=== PATIENT | female | born 1975 | race Caucasian/White ===

== ENCOUNTER 2017-09-04 00:56 | Inpatient (IN) ==
--- NOTE | 2017-09-04 07:20 | Electrocardiograph Report ---
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
[2017-09-04] MEDS: *HR* Metoprolol 5 MG/5 ML VIAL IVP PRN (07:51)
[2017-09-04] MEDS ORDERED: Naloxone 0.4 MG/ML INJ IVP PRN (08:30)
[2017-09-04] MEDS ORDERED: D5% in Water 1,000 ML IVC PRN (08:33)
[2017-09-04] MEDS ORDERED: *HR* Dextrose 50 % in Water (Syg) 50 ML SYRINGE IVP PRN (08:33)
[2017-09-04] MEDS ORDERED: Dextrose Gel 15 GM/37.5 ML TUBE PO PRN ×2 (08:33)
--- NOTE | 2017-09-04 08:43 | Internal Med History&Physical ---
Date of Encounter: 09/04/17 Time of Encounter: 05:00 Internal Medicine - H&P: HPI Chief complaint: Chest pain Admitted From: Home Plans for Post Hospital Care: Home History of present illness: Ms. Larkin is a 42 year old female Patient presents as a transfer from [facility]. 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 The pain was focused around her left upper chest, felt like pressure and was associated with shortness of breath and nausea. She had never had pain like this before. She came to the emergency room and her initial troponins were negative. Of note , her blood tests were described as being very thick in appearance, almost like a milkshake and had to be processed in a separate facility. She also had elevated blood sugars and blood pressure of 190/100. Her hypertension improved to 143/73 at time of transfer, and her EKG showed no acute changes. Chest CT was also negative. She elected to be transferred to [place] because she does not have a vehicle and has family in the area. Of note patient also has a boil in her groin that has been present for a few days. Has been having drainage including blood and pus. Past Med Surg Social Fam HX - Past Medical History Medical history: asthma, diabetes, hypertension Additional medical history: htn. hypothyroid. ear lesion. anxiety as acute reaction to exceptional stress. DM. Tachycardia - Past Surgical History Additional surgical history: c section. tubal ligation. hysterectomy. appendectomy. parathyroidectomy - Social History Smoking Status: Never smoker Alcohol use: none Drug use: none Internal Medicine - H&P: Meds Albuterol Sulfate [Albuterol Inhaler] 2 puff IH Q4-6H PRN 09/04/17 [History] Alogliptin Benzoate [Alogliptin] 25 mg PO DAILY 09/04/17 [History] Atorvastatin [Lipitor] 40 mg PO HS 09/04/17 [History] Buspirone HCl [Buspar] 10 mg PO BID 09/04/17 [History] Dicyclomine [Bentyl] 20 mg PO QID PRN 09/04/17 [History] Diltiazem HCl [Diltiazem 24Hr ER] 300 mg PO DAILY 09/04/17 [History] EPINEPHrine [Epipen] 0.3 mg IM ONCE PRN 09/04/17 [History] Ergocalciferol (VITAMIN D2) [Vitamin D2] 50,000 unit PO TH 09/04/17 [History] Fenofibrate,Micronized [Antara] 200 mg PO HS 09/04/17 [History] Gabapentin [Neurontin] 100 mg PO TID 09/04/17 [History] Glimepiride [Amaryl] 2 mg PO DAILY 09/04/17 [History] Insulin Degludec [Tresiba Flextouch U-100] 50 unit SQ DAILY 09/04/17 [History] Insulin LISPRO [Humalog Kwikpen U-100] 10 unit SQ TIDWM 09/04/17 [History] Levothyroxine Sodium 25 mcg PO DAILY 09/04/17 [History] Metformin HCl [Metformin HCl] 500 mg PO BID 09/04/17 [History] Metoprolol Succinate 100 mg PO DAILY 09/04/17 [History] Mirtazapine [Remeron] 45 mg PO HS 09/04/17 [History] Promethazine [Phenergan] 25 mg PO Q4H PRN 09/04/17 [History] Ranitidine HCl [Acid Mechanical Detailer] 150 mg PO HS PRN 09/04/17 [History] Tizanidine HCl [Tizanidine HCl] 4 mg PO TID 09/04/17 [History] Topiramate [Topamax] 25 mg PO Q12H 09/04/17 [History] Venlafaxine HCl [Venlafaxine HCl ER] 150 mg PO QAM 09/04/17 [History] 3 Allergy/AdvReac Type Severity Reaction Status Date / Time azithromycin Allergy Difficulty Verified 09/04/17 07:50 [From Zithromax Z-Jareth] Breathing NSAIDS (Non-Steroidal Allergy Difficulty Verified 09/04/17 07:50 Anti-Inflamma Breathing All Systems PM: A 10-system review of systems was performed and is negative for pertinent findings except as documented above in the HPI. - Constitutional Vitals: Temp Pulse Resp BP Pulse Ox 98.2 F 107 17 176/119 99 09/04/17 07:33 09/04/17 07:33 09/04/17 07:33 09/04/17 07:33 09/04/17 07:33 General appearance: Present: mild distress, A&O X 3, pleasant - Head Head exam: Present: normal inspection - Eye Eye exam: Present: EOMI, normal appearance - Respiratory Respiratory exam: Present: CTAB. Absent: chest wall tenderness, respiratory distress, wheezes - Cardiovascular Cardiovascular exam: Present: RRR. Absent: diastolic murmur, systolic murmur - GI/Abdominal GI/Abdominal exam: Present: normal bowel sounds, soft. Absent: tenderness - Extremities Exam Extremities exam: Present: warm, radial pulses palpable and symmetrical. Absent : calf tenderness, tenderness - Neurological Exam Neurological exam: Present: strengths equal and symetr throughout. 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 Denies heavy lifting, never had before. Trops negative thus far, no EKG changes. Patient's pain has improved since her transfer, but still present. Continue to monitor troponins. 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 Qualifiers: Qualified Code(s): R07.9 - Chest pain, unspecified (2) Diabetes Current Visit: Yes Status: Acute Assessment and plan: Poorly controlled diabetic, has not had good control of her sugars for some time Start on subcutaneous insulin with sliding scale Diabetes education today Check A1c Monitor sugars with meals and at night. 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 Discharge present. Start doxycycline Wound cultures obtained, follow up results. (4) Hypertension Current Visit: Yes Status: Acute Assessment and plan: Improved from previous ER, takes metoprolol at home. Continue to monitor. Qualifiers: Qualified Code(s): I10 - Essential (primary) hypertension (5) Hyperlipidemia Current Visit: Yes Status: Acute Assessment and plan: Takes fenofibrate and atorvastatin. Had blood samples that were described as ' like a milkshake' but [facility]. Check lipid panel. Continue home meds. Qualifiers: Qualified Code(s): E78.2 - Mixed hyperlipidemia (6) High triglycerides Current Visit: Yes Status: Acute Assessment and plan: Patient states that she does have history of high triglycerides. Check lipid panel today. - Time Spent With Patient Total time spent is greater than 50% in coordination of care (as documented) at patient's floor/unit and/or counseling patient: Greater than 35 minutes
[2017-09-04] MEDS: *HR* HYDROcodone/Acet 5/325 mg TABLET PO PRN ×3 (09:35→23:35)
[2017-09-04] MEDS: Insulin LISPRO 300 UNITS/3 ML VIAL SQ SCH ×2 (09:35→12:06)
[2017-09-04] MEDS: Doxycycline 100 MG CAPSULE PO SCH ×2 (09:35→20:32)
[2017-09-04 09:58] LABS: Basophils # 0.1 K/mcL (0.0-0.2); Basophils % 0.6 %; Eosinophils # 0.1 K/mcL (0.0-0.6); Eosinophils % 0.8 %; Hematocrit 38.9 % (35.3-44.9); Hemoglobin 13.9 g/dL (11.5-15.4); Immature Granulocytes % 0.3 % (0-4); Lymphocytes # 2.4 K/mcL (0.6-4.6); Lymphocytes % 24.8 %; Mean Corpuscular HGB Conc 35.7 g/dL (31.6-35.5); Mean Corpuscular Hemoglobin 32.8 pg (28.0-33.3); Mean Corpuscular Volume 91.7 fL (83.0-100.0); Mean Platelet Volume 10.3 fL (9.4-12.4); Monocytes # 0.6 K/mcL (0.0-1.3); Neutrophils # 6.6 K/mcL (1.6-8.9); Platelet Count 306 K/mcL (140-400); Red Blood Count 4.24 M/mcL (3.82-4.97); Segmented Neutrophils % 67.5 %
[2017-09-04 10:56] LABS: Chol/HDL Ratio 37.6 (0-4.9); Cholesterol 941 mg/dL (< 200); HDL Cholesterol 25 mg/dL (40-59); Triglycerides > 5000 mg/dL (< 150)
[2017-09-04 11:20] LABS: Estimated Average Glucose 413 mg/dl
[2017-09-04] MEDS ORDERED: Insulin LISPRO 300 UNITS/3 ML VIAL SQ SCH ×4 (11:30→21:00)
[2017-09-04] MEDS: Nitroglycerin 0.4 MG TAB.SUBL SL PRN ×2 (12:08→20:35)
[2017-09-04 12:17] LABS: BUN/Creatinine Ratio 10 (6-26); Blood Urea Nitrogen 7 mg/dL (6-20); Calcium 9.2 mg/dL (8.6-10.3); Carbon Dioxide 16 mEq/L (23-29); Chloride 94 mEq/L (98-107); Glucose 451 mg/dL (70-105); Osmolality,Calculated 278 (280-300); Potassium 3.7 mEq/L (3.5-5.1); Sodium 125 mEq/L (136-145); eGFR For African Americans > 60 (> 60); eGFR For Non-African Americans > 60 (> 60)
[2017-09-04] MEDS ORDERED: Famotidine 20 MG TABLET PO PRN (13:01)
[2017-09-04] MEDS ORDERED: *HR* EPINEPHrine 0.3 MG/0.3 ML (PEN) IM PRN (13:01)
[2017-09-04 13:43] LABS: Lipase 80 Units/L (11-82)
--- NOTE | 2017-09-04 14:15 | Event Note ---
Date of Encounter: 09/04/17 Time of Encounter: 09:50 Patient continues to have chest pain in the left anterior chest wall region. Nonradiating. Labs show a severely elevated triglycerides, high blood sugars and A1c of 16%. Place patient on insulin per sliding scale and long-acting insulin. Patient is already on statin and fenofibrate. Unsure if she is complying with this medication regimen. No signs of pancreatitis at this time. Lipase is normal. Will monitor closely. If troponins are negative, consider stress test in morning.
[2017-09-04] MEDS: 0.9 % Sodium Chloride w KCl 20 MEQ/1,000 ML MLS IVC SCH (14:26)
[2017-09-04] MEDS: Gabapentin 100 MG CAPSULE PO SCH ×2 (14:26→20:32)
[2017-09-04] MEDS: tiZANidine 4 MG TABLET PO SCH ×2 (14:26→20:32)
[2017-09-04] MEDS ORDERED: D5% in Water 1,000 ML IVC SCH (15:45)
[2017-09-04] MEDS: Insulin Human Regular 100 UNIT in 0.9 % Sodium Chloride 100 ML IVC SCH (16:22)
--- NOTE | 2017-09-04 16:56 | Event Note ---
Date of Encounter: 09/04/17 Time of Encounter: 16:55 Patient has severe hypertriglyceridemia with triglycerides greater than 5000. Lipase is normal. Since we are unable to do plasmapheresis here, we will place patient on insulin drip. If her blood sugars trend down, we will switch her fluids to D5 1/2 NS.
[2017-09-04] MEDS: *HR* Heparin 5,000 UNIT/ML VIAL SQ SCH (17:06)
[2017-09-04 18:47] LABS: Carbon Dioxide 16 mEq/L (23-29); Chloride 95 mEq/L (98-107); Potassium 3.2 mEq/L (3.5-5.1); Sodium 124 mEq/L (136-145)
[2017-09-04 18:48] LABS: BUN/Creatinine Ratio 15 (6-26); Blood Urea Nitrogen 10 mg/dL (6-20); Glucose 331 mg/dL (70-105); Osmolality,Calculated 270 (280-300); eGFR For African Americans > 60 (> 60); eGFR For Non-African Americans > 60 (> 60)
[2017-09-04] MEDS: Topiramate 25 MG TABLET PO SCH (20:33)
[2017-09-04] MEDS: Mirtazapine 15 MG TABLET PO SCH (20:33)
[2017-09-04] MEDS ORDERED: Fenofibrate 54 MG TABLET PO SCH (21:00)
[2017-09-04] MEDS ORDERED: Insulin DETEMIR 100 UNIT/ML X5UNITS SQ SCH (21:00)
[2017-09-04] MEDS: Potassium Chloride 40 MEQ in D5% in 0.45% NACL 1,000 ML IVC SCH (22:36)
[2017-09-04 23:11] LABS: Potassium 2.9 mEq/L (3.5-5.1); Sodium 127 mEq/L (136-145)
[2017-09-04 23:12] LABS: Carbon Dioxide 17 mEq/L (23-29); Chloride 98 mEq/L (98-107)
[2017-09-04 23:13] LABS: BUN/Creatinine Ratio 20 (6-26); Blood Urea Nitrogen 11 mg/dL (6-20); Glucose 172 mg/dL (70-105); Osmolality,Calculated 267 (280-300); eGFR For African Americans > 60 (> 60); eGFR For Non-African Americans > 60 (> 60)
[2017-09-04 23:14] LABS: Calcium 8.8 mg/dL (8.6-10.3)
[2017-09-05] MEDS: Insulin Human Regular 100 UNIT in 0.9 % Sodium Chloride 100 ML IVC SCH ×3 (00:29→15:28)
[2017-09-05] MEDS: *HR* Metoprolol 5 MG/5 ML VIAL IVP PRN (04:29)
[2017-09-05 05:07] LABS: Basophils # 0.1 K/mcL (0.0-0.2); Basophils % 0.7 %; Eosinophils # 0.2 K/mcL (0.0-0.6); Hematocrit 39.1 % (35.3-44.9); Hemoglobin 13.9 g/dL (11.5-15.4); Immature Granulocytes % 0.6 % (0-4); Lymphocytes # 2.6 K/mcL (0.6-4.6); Mean Corpuscular HGB Conc 35.5 g/dL (31.6-35.5); Mean Corpuscular Hemoglobin 32.9 pg (28.0-33.3); Mean Corpuscular Volume 92.7 fL (83.0-100.0); Mean Platelet Volume 10.4 fL (9.4-12.4); Monocytes # 0.5 K/mcL (0.0-1.3); Monocytes % 5.6 %; Neutrophils # 4.8 K/mcL (1.6-8.9); Platelet Count 292 K/mcL (140-400); Red Blood Count 4.22 M/mcL (3.82-4.97); Red Cell Distribution Width 13.9 % (11.5-14.5); Segmented Neutrophils % 59.1 %
[2017-09-05] MEDS: *HR* HYDROcodone/Acet 5/325 mg TABLET PO PRN ×4 (05:54→23:55)
[2017-09-05] MEDS: Levothyroxine 25 MCG TABLET PO SCH (05:54)
[2017-09-05] MEDS: *HR* Heparin 5,000 UNIT/ML VIAL SQ SCH ×2 (05:55→17:57)
[2017-09-05] MEDS ORDERED: Regadenoson 0.4 MG/5 ML SYRINGE IVP ONE (06:28)
[2017-09-05] MEDS: tiZANidine 4 MG TABLET PO SCH ×4 (06:33→23:55)
[2017-09-05 07:10] LABS: BUN/Creatinine Ratio 21 (6-26); Blood Urea Nitrogen 10 mg/dL (6-20); Carbon Dioxide 14 mEq/L (23-29); Chloride 101 mEq/L (98-107); Glucose 208 mg/dL (70-105); Osmolality,Calculated 271 (280-300); Potassium 3.2 mEq/L (3.5-5.1); Sodium 128 mEq/L (136-145); Triglycerides > 5000 mg/dL (< 150); eGFR For African Americans > 60 (> 60); eGFR For Non-African Americans > 60 (> 60)
[2017-09-05] MEDS: Potassium Chloride 40 MEQ in D5% in 0.45% NACL 1,000 ML IVC SCH (09:44)
[2017-09-05] MEDS: Diltiazem CD (24hr) 300 MG CAPSULE PO SCH (09:51)
[2017-09-05] MEDS: Venlafaxine XR (24 HR) 150 MG CAP.ER.24H PO SCH (09:51)
[2017-09-05] MEDS: Doxycycline 100 MG CAPSULE PO SCH ×2 (09:51→20:16)
[2017-09-05] MEDS: Cholecalciferol (D-3) 1,000 UNIT TABLET PO SCH (09:51)
[2017-09-05] MEDS: Topiramate 25 MG TABLET PO SCH ×2 (09:51→20:16)
[2017-09-05] MEDS: Metoprolol XL (24 HR) Succ 50 MG TAB.ER.24H PO SCH (09:51)
[2017-09-05] MEDS: Gabapentin 100 MG CAPSULE PO SCH ×3 (09:51→20:17)
[2017-09-05] MEDS: 0.9 % Sodium Chloride w KCl 20 MEQ/1,000 ML MLS IVC SCH (12:15)
--- NOTE | 2017-09-05 15:40 | Internal Med Progress Note ---
Date of Encounter: 09/05/17 Time of Encounter: 09:50 - Assessment and plan (1) Chest pain Current Visit: Yes Status: Acute Assessment and plan: Likely musculoskeletal. Chest pain is improving. Stress test was negative for any ischemia. Qualifiers: Chest pain type: precordial pain Qualified Code(s): R07.2 - Precordial pain (2) Diabetes Current Visit: Yes Status: Chronic Assessment and plan: Uncontrolled. Patient received about 200 units of insulin overnight and her blood sugars have improved. Discussed with her shipping room helper. She has not followed up with them for at least 6 months now. A1c done in July was around 12 %. Currently at 16%. Discussed further plan of care and recommended U500. We will start 100 units of U500 insulin starting tonight. Monitor blood sugars closely. If patient responds well to this regimen, plan on discharge tomorrow at this dose. 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 On doxycycline. Will complete a one-week course. (4) High triglycerides Current Visit: Yes Status: Acute Assessment and plan: Triglycerides remain greater than 500. Discussed with her shipping room helper. Her previous labs in July showed triglycerides levels of 500. Placed on IV insulin to help improve triglyceride levels. We will discontinue later this evening and transition to use 500. Increased fenofibrate and statin dose. (5) Hyperlipidemia Current Visit: Yes Status: Chronic Assessment and plan: Management as above Qualifiers: Hyperlipidemia type: mixed hyperlipidemia Qualified Code(s): E78.2 - Mixed hyperlipidemia (6) Hypertension Current Visit: Yes Status: Chronic Assessment and plan: Continue Cardizem and metoprolol. Blood pressure is controlled at this time. Qualifiers: Hypertension type: essential hypertension Qualified Code(s): I10 - Essential (primary) hypertension - Time Spent With Patient Total time spent is greater than 50% in coordination of care (as documented) at patient's floor/unit and/or counseling patient: - Subjective Interval history: Patient is lying in bed. She does continue to have intermittent chest pain. Underwent cardiac stress test this morning. No complications. On IV insulin drip currently. No fever or chills reported overnight. - Constitutional Vitals: Temp Pulse Resp BP Pulse Ox 98.9 F 101 18 129/77 96 09/05/17 11:21 09/05/17 11:21 09/05/17 11:21 09/05/17 11:21 09/05/17 11:21 General appearance: Present: mild distress, A&O X 3, pleasant, answers questions appropriately - Neck Neck exam general surgery: Present: supple, trachea midline. Absent: lymphadenopathy - Respiratory Respiratory exam: Present: CTAB. Absent: accessory muscle use, rales, rhonchi, wheezes - Cardiovascular Cardiovascular exam: Present: RRR, +S1, +S2. Absent: diastolic murmur, gallop, rubs, systolic murmur - GI/Abdominal GI/Abdominal exam: Present: normal bowel sounds, soft, no peritoneal signs. Absent: distended, tenderness - Extremities Exam Extremities exam: Present: warm, radial pulses palpable and symmetrical. Absent : calf tenderness, cyanotic, pedal edema - Neurological Exam Neurological exam: Present: alert, oriented X3, no focal deficits. Absent: facial droop, speech deficit - Skin Skin exam: Present: dry, intact Internal Medicine: Result - Labs CBC & Chem 7: 09/05/17 04:40 09/05/17 04:40 Labs: Short CBC 09/05/17 Range/Units 04:40 WBC 8.1 (4.3-11.1) K/mcL Hgb 13.9 (11.5-15.4) g/dL Hct 39.1 (35.3-44.9) % Plt Count 292 (140-400) K/mcL Neutrophils # 4.8 (1.6-8.9) K/mcL BMP 09/04/17 09/04/17 09/05/17 17:22 21:52 04:40 Sodium 124 L 127 L 128 L Potassium 3.2 L 2.9 L 3.2 L Chloride 95 L 98 101 Carbon Dioxide 16 L 17 L 14 L BUN 10 11 10 Creatinine 0.65 0.54 L 0.47 L Glucose 331 H 172 H 208 H Calcium 9.0 8.8 9.0 Consult Discharge Plan - Plan Referrals: Alexander Johns DO [Primary Care Provider] - 09/11/17 1:30 pm (Please follow up as schedule..) Demetra Echols, GABRIELA [Advanced Practice Nurse] - 09/11/17 8:00 am (Please follow up as schedule...) Prescriptions: Insulin Regular U-500 [HumuLIN R U-500] 100 unit SQ BIDWM #1 vial Syringe Ndl,Insul U-500,0.5ML [Insulin Syringe] 1 each MC BID #60 disp.syrin
[2017-09-05] MEDS: *HR* Insulin Regular U-500 500 UNIT/ML SQ SCH (17:56)
[2017-09-05] MEDS: Mirtazapine 15 MG TABLET PO SCH (20:16)
[2017-09-05] MEDS ORDERED: Fenofibrate 54 MG TABLET PO SCH (21:00)
[2017-09-06] MEDS: *HR* HYDROcodone/Acet 5/325 mg TABLET PO PRN ×2 (06:14→12:37)
[2017-09-06] MEDS: tiZANidine 4 MG TABLET PO SCH (06:14)
[2017-09-06] MEDS: Levothyroxine 25 MCG TABLET PO SCH (06:14)
[2017-09-06] MEDS: *HR* Heparin 5,000 UNIT/ML VIAL SQ SCH (06:14)
[2017-09-06] MEDS ORDERED: D5% in Water 1,000 ML IVC PRN (08:46)
[2017-09-06] MEDS: Venlafaxine XR (24 HR) 150 MG CAP.ER.24H PO SCH (09:27)
[2017-09-06] MEDS: Diltiazem CD (24hr) 300 MG CAPSULE PO SCH (09:28)
[2017-09-06] MEDS: Metoprolol XL (24 HR) Succ 50 MG TAB.ER.24H PO SCH (09:28)
[2017-09-06] MEDS: Topiramate 25 MG TABLET PO SCH (09:28)
[2017-09-06] MEDS: Doxycycline 100 MG CAPSULE PO SCH (09:29)
[2017-09-06] MEDS: *HR* Insulin Regular U-500 500 UNIT/ML SQ SCH (09:29)
[2017-09-06] MEDS: Insulin LISPRO 300 UNITS/3 ML VIAL SQ SCH ×2 (09:29→12:37)
[2017-09-06] MEDS: Gabapentin 100 MG CAPSULE PO SCH (09:30)
[2017-09-06] MEDS: Cholecalciferol (D-3) 1,000 UNIT TABLET PO SCH (09:49)
[2017-09-06 10:40] VITALS: BP 142/93
--- NOTE | 2017-09-06 12:00 | Discharge Summary ---
- NOTES TO OUTPATIENT PROVIDER Notes to Outpatient Provider: Patient hospitalized with chest pain. Found to have uncontrolled diabetes and severe hypertriglyceridemia. She was placed on IV insulin and has now been transitioned to U500 insulin at 100 units twice daily. Discussed with her primary tea bag machine tender. Also increased her statin dose. He had a negative cardiac stress test. She is clinically stable to be discharged home. She has been provided with prescription and has already filled her U500 insulin here in the hospital. Patient also has hyponatremia and metabolic acidosis with low bicarbonate. Recommend outpatient follow-up with her PCP and possible consultation with nephrology as outpatient. 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: with alf use Diabetes mellitus complication status: with hyperglycemia Qualified Code(s): E11.65 - Type 2 diabetes mellitus with hyperglycemia; Z79.4 - health benefits specialist (current) use of insulin (3) Folliculitis Priority: Secondary Status: Acute (4) High triglycerides Priority: Secondary Status: Acute (5) Hyperlipidemia Priority: Secondary Status: Chronic Qualifiers: Hyperlipidemia type: mixed hyperlipidemia Qualified Code(s): E78.2 - Mixed hyperlipidemia (6) Hypertension Priority: Secondary Status: Chronic Qualifiers: Hypertension type: essential hypertension Qualified Code(s): I10 - Essential (primary) hypertension Hospital course: Ms. Larkin is a 42 year old female Patient with history of diabetes, possibly metabolic syndrome, hypertension, hyperlipidemia was hospitalized here with chest pain. She was found to have and uncontrolled diabetes and severe hypertriglyceridemia. Her triglycerides were greater than 5000. Blood sugars were greater than 400. A1c was greater than 16. She was placed on IV insulin for hypertriglyceridemia and has now been transitioned to U500 insulin at 100 units twice daily. She does have metabolic acidosis and hyponatremia but given her severe hypertriglyceridemia, unclear what her baseline is. She may benefit from referral to nephrology as outpatient for further management. Her corrected sodium currently is 128. I discussed her case with her primary tea bag machine tender. They are in agreement with starting patient on U500 insulin. We also increased her statin dose. He had a negative cardiac stress test. She is clinically stable to be discharged home. She has been provided with prescription and has already filled her U500 insulin here in the hospital. She needs to follow up as early as possible with her tea bag machine tender and primary care provider for further management. Discharge discussed with: patient, nurse, case management - Time Spent with Patient Total time spent providing and/or coordinating discharge services: Greater than 30 minutes (35 min) - Discharge Medications Prescriptions: Atorvastatin [Lipitor] 80 mg PO HS #60 tablet Doxycycline 100 mg PO BID #10 capsule Home Medications: Albuterol Sulfate [Albuterol Inhaler] 2 puff IH Q4-6H PRN 09/04/17 [History] Alogliptin Benzoate [Alogliptin] 25 mg PO DAILY 09/04/17 [History] Buspirone HCl [Buspar] 10 mg PO BID 09/04/17 [History] Dicyclomine [Bentyl] 20 mg PO QID PRN 09/04/17 [History] Diltiazem HCl [Diltiazem 24Hr ER] 300 mg PO DAILY 09/04/17 [History] EPINEPHrine [Epipen] 0.3 mg IM ONCE PRN 09/04/17 [History] Ergocalciferol (VITAMIN D2) [Vitamin D2] 50,000 unit PO TH 09/04/17 [History] Fenofibrate,Micronized [Antara] 200 mg PO HS 09/04/17 [History] Gabapentin [Neurontin] 100 mg PO TID 09/04/17 [History] Glimepiride [Amaryl] 2 mg PO DAILY 09/04/17 [History] Insulin LISPRO [Humalog Kwikpen U-100] 10 unit SQ TIDWM 09/04/17 [History] Levothyroxine Sodium 25 mcg PO DAILY 09/04/17 [History] Metformin HCl 500 mg PO BID 09/04/17 [History] Metoprolol Succinate 100 mg PO DAILY 09/04/17 [History] Mirtazapine [Remeron] 45 mg PO HS 09/04/17 [History] Promethazine [Phenergan] 25 mg PO Q4H PRN 09/04/17 [History] Ranitidine HCl [Acid Icu Registered Nurse] 150 mg PO HS PRN 09/04/17 [History] Tizanidine HCl 4 mg PO TID 09/04/17 [History] Topiramate [Topamax] 25 mg PO Q12H 09/04/17 [History] Venlafaxine HCl [Venlafaxine HCl ER] 150 mg PO QAM 09/04/17 [History] Insulin Regular U-500 [HumuLIN R U-500] 100 unit SQ BIDWM #1 vial 09/05/17 [Rx] Syringe Ndl,Insul U-500,0.5ML [Insulin Syringe] 1 each MC BID #60 disp.syrin [Rx] Atorvastatin [Lipitor] 80 mg PO HS #60 tablet 09/06/17 [Rx] Doxycycline 100 mg PO BID #10 capsule 09/06/17 [Rx] Allergies/Adverse Reactions: 3 Allergy/AdvReac Type Severity Reaction Status Date / Time azithromycin Allergy Difficulty Verified 09/04/17 07:50 [From Zithromax Z-Jareth] Breathing NSAIDS (Non-Steroidal Allergy Difficulty Verified 09/04/17 07:50 Anti-Inflamma Breathing Date of admission: 09/05/17 16:48 Primary care physician: Alexander Johns Consults: 09/04/17 08:33 Consult to Diabetes Education [CONS] Routine Comment: Reason for Consult: Poorly controlled diabetic, does not have good control of her blood sugars and has not for a long time. Discharging clinician: Elizabeth Howell Anticipated date of discharge: 09/06/17 - Constitutional Vitals: Temp Pulse Resp BP Pulse Ox 99.3 F 82 16 142/93 96 09/06/17 10:36 09/06/17 10:36 09/06/17 10:36 09/06/17 10:36 09/06/17 10:36 General appearance: Present: A&O X 3, pleasant, no acute distress, obese, answers questions appropriately - Neck Neck exam general surgery: Present: supple, trachea midline. Absent: lymphadenopathy - Respiratory Respiratory exam: Present: CTAB. Absent: accessory muscle use, rales, rhonchi, wheezes - Cardiovascular Cardiovascular exam: Present: RRR, +S1, +S2. Absent: diastolic murmur, gallop, rubs, systolic murmur - GI/Abdominal GI/Abdominal exam: Present: normal bowel sounds, soft, no peritoneal signs. Absent: distended, tenderness - Patient Status Disposition: Home, Self-Care Condition: Good Functional capacity at discharge: independent ambulation Overall status at discharge: patient is progressing back to baseline - Discharge Instructions Instructions: Chest Pain (DC), Diabetes Mellitus Type 2 in Adults (DC) Follow Up With: Alexander Johns DO [Primary Care Provider] - 09/11/17 1:30 pm (Please follow up as schedule..) Demetra Echols, GABRIELA [Advanced Practice Nurse] - 09/11/17 8:00 am (Please follow up as schedule...) Additional Instructions: Follow a low sodium, low fat, low cholesterol diet. Advance activity as tolerated. - Diet and Activity Activity: increase activity as tolerated Diet: diabetic diet, low fat, low cholesterol, low salt diet
[2017-09-06 13:49] LABS: BUN/Creatinine Ratio 17 (6-26); Blood Urea Nitrogen 13 mg/dL (6-20); Calcium 9.1 mg/dL (8.6-10.3); Carbon Dioxide 13 mEq/L (23-29); Chloride 98 mEq/L (98-107); Glucose 491 mg/dL (70-105); Osmolality,Calculated 276 (280-300); Potassium 4.7 mEq/L (3.5-5.1); Sodium 122 mEq/L (136-145); eGFR For African Americans > 60 (> 60); eGFR For Non-African Americans > 60 (> 60)
[2017-09-06 14:04] LABS: Triglycerides 4360 mg/dL (< 150)
--- NOTE | 2017-09-06 18:51 | Event Note ---
Date of Encounter: 09/06/17 Time of Encounter: 18:49 Reviewed labs. Patient's acidosis worsened. May have underlying RTA vs developing DKA. Called and spoke with patient and advised to return to ED if Blood sugars remain high. Patient agrees with plan.
[2017-09-06] MEDS ORDERED: Insulin LISPRO 300 UNITS/3 ML VIAL SQ SCH (21:00)
== END 2017-09-06 12:51 | disposition home or self-care (01) | DRG 313 ==
LOC: 2ANU → SUATTDRO 02:25
PROVIDERS: ADMIT Internal Medicine; ATTEND Internal Medicine

== ENCOUNTER 2018-05-03 05:02 | Inpatient (IN) ==
[2018-05-03] MEDS ORDERED: D5% in 0.45% NACL w KCl 20 MEQ/1,000 ML MLS IVC ONE (06:50)
[2018-05-03] MEDS ORDERED: Ondansetron 4 MG/2 ML VIAL IVP PRN (07:23)
[2018-05-03] MEDS ORDERED: Naloxone 0.4 MG/ML INJ IVP PRN (07:23)
[2018-05-03] MEDS ORDERED: Acetaminophen 325 MG TABLET PO PRN (07:23)
[2018-05-03] MEDS ORDERED: D5% in 0.45% NACL 1,000 ML IVC SCH (07:30)
[2018-05-03] MEDS ORDERED: *HR* FentaNYL (PF) 100 MCG/2 ML VIAL IVP ONE (07:50)
[2018-05-03 07:58] LABS: Basophils # 0.1 K/mcL (0.0-0.2); Basophils % 0.8 %; Eosinophils # 0.4 K/mcL (0.0-0.6); Eosinophils % 4.3 %; Hematocrit 36.4 % (35.3-44.9); Hemoglobin 12.2 g/dL (11.5-15.4); Immature Granulocytes % 0.3 % (0-4); Lymphocytes # 2.5 K/mcL (0.6-4.6); Lymphocytes % 28.5 %; Mean Corpuscular HGB Conc 33.5 g/dL (31.6-35.5); Mean Corpuscular Volume 89.7 fL (83.0-100.0); Mean Platelet Volume 10.6 fL (9.4-12.4); Monocytes # 0.6 K/mcL (0.0-1.3); Monocytes % 6.7 %; Neutrophils # 5.1 K/mcL (1.6-8.9); Platelet Count 197 K/mcL (140-400); Red Blood Count 4.06 M/mcL (3.82-4.97); Red Cell Distribution Width 12.8 % (11.5-14.5); Segmented Neutrophils % 59.4 %
[2018-05-03 08:02] LABS: VBG HCO3 25 mEq/L (21-27); VBG PCO2 41 mmHg (41-51); VBG PH 7.39 pH Units (7.32-7.42); VBG PO2 117 mmHg (25-50)
[2018-05-03 08:22] LABS: Alanine Aminotransferase 20 Units/L (7-52); Albumin 3.7 g/dL (3.5-5.7); Albumin/Globulin Ratio 1.6 (1.1-2.2); Alkaline Phosphatase 96 Units/L (34-104); Aspartate Amino Transferase 14 Units/L (13-39); BUN/Creatinine Ratio 13 (6-26); Bilirubin,Indirect 0.4 mg/dL (0.0-1.2); Bilirubin,Total 0.4 mg/dL (0.3-1.0); Blood Urea Nitrogen 12 mg/dL (6-20); Calcium 10.2 mg/dL (8.6-10.3); Carbon Dioxide 24 mEq/L (23-29); Chloride 98 mEq/L (98-107); Chol/HDL Ratio 11.2 (0-4.9); Cholesterol 313 mg/dL (< 200); Globulin 2.3 g/dL (2.4-3.5); Glucose 132 mg/dL (70-105); HDL Cholesterol 28 mg/dL (40-59); Lipase 25 Units/L (11-82); Magnesium 2.2 mg/dL (1.6-2.6); Osmolality,Calculated 274 (280-300); Phosphorous 2.7 mg/dL (2.7-4.5); Potassium 2.9 mEq/L (3.5-5.1); Sodium 131 mEq/L (136-145); Triglycerides 947 mg/dL (< 150); eGFR For Non-African Americans > 60 (> 60)
[2018-05-03] MEDS ORDERED: Insulin DETEMIR 100 UNIT/ML X5UNITS SQ ONE (08:29)
[2018-05-03] MEDS ORDERED: Dextrose 4 GM Chewable Tablets PO PRN ×2 (08:29)
[2018-05-03] MEDS ORDERED: D5% in Water 1,000 ML IVC PRN (08:29)
[2018-05-03] MEDS ORDERED: Dextrose Gel 15 GM/37.5 ML TUBE PO PRN ×2 (08:29)
--- NOTE | 2018-05-03 08:54 | Internal Med History&Physical ---
Date of Encounter: 05/03/18 Time of Encounter: 08:52 Internal Medicine - H&P: HPI Chief complaint: Abdominal pain, diarrhea Admitted From: Emergency Dept Plans for Post Hospital Care: Home History of present illness: Ms. Larkin is a 43 year old female patient with a history of diabetes mellitus who presented to hold the hospital with complaints of abdominal pain that began last night. Pain radiates to her back. Associated with diarrhea. Denies any blood in her stools. Has been nauseated without emesis. No fevers or chills. She also describes central chest heaviness but also began with her pain last night. Chest pain does not radiate. She denies any shortness of breath. No dizziness or lightheadedness. She does have diarrhea. She feels very weak. Past Med Surg Social Fam HX - Past Medical History Attestation: Yes The following information was validated with the patient. Source: patient Medical history: asthma, diabetes, hypertension Additional medical history: htn. hypothyroid. ear lesion. anxiety as acute reaction to exceptional stress. DM. Tachycardia - Past Surgical History Additional surgical history: c section. tubal ligation. hysterectomy. appendectomy. parathyroidectomy - Social History Smoking Status: Never smoker Alcohol use: none Drug use: none Internal Medicine - H&P: Meds Albuterol Sulfate [Albuterol Inhaler] 2 puff IH Q4-6H PRN 09/04/17 [History] Alogliptin Benzoate [Alogliptin] 25 mg PO DAILY 09/04/17 [History] Buspirone HCl [Buspar] 10 mg PO BID 09/04/17 [History] Dicyclomine [Bentyl] 20 mg PO QID PRN 09/04/17 [History] EPINEPHrine [Epipen] 0.3 mg IM ONCE PRN 09/04/17 [History] Ergocalciferol (VITAMIN D2) [Vitamin D2] 50,000 unit PO TH 09/04/17 [History] Fenofibrate,Micronized [Antara] 200 mg PO HS 09/04/17 [History] Gabapentin [Neurontin] 100 mg PO TID 09/04/17 [History] Glimepiride [Amaryl] 2 mg PO DAILY 09/04/17 [History] Insulin LISPRO [Humalog Kwikpen U-100] 10 unit SQ TIDWM 09/04/17 [History] Levothyroxine Sodium 25 mcg PO DAILY 09/04/17 [History] Metformin HCl 500 mg PO BID 09/04/17 [History] Metoprolol Succinate 100 mg PO DAILY 09/04/17 [History] Mirtazapine [Remeron] 45 mg PO HS 09/04/17 [History] Promethazine [Phenergan] 25 mg PO Q4H PRN 09/04/17 [History] Ranitidine HCl [Acid Towel Inspector] 150 mg PO HS PRN 09/04/17 [History] Tizanidine HCl 4 mg PO TID 09/04/17 [History] Topiramate [Topamax] 25 mg PO Q12H 09/04/17 [History] Venlafaxine HCl [Venlafaxine HCl ER] 150 mg PO QAM 09/04/17 [History] dilTIAZem HCl [Diltiazem 24Hr ER] 300 mg PO DAILY 09/04/17 [History] Insulin Regular U-500 [HumuLIN R U-500] 100 unit SQ BIDWM #1 vial 09/05/17 [Rx] Syringe Ndl,Insul U-500,0.5ML [Insulin Syringe] 1 each MC BID #60 disp.syrin 09/05/17 [Rx] Atorvastatin [Lipitor] 80 mg PO HS #60 tablet 09/06/17 [Rx] Doxycycline 100 mg PO BID #10 capsule 09/06/17 [Rx] Allergy/AdvReac Type Severity Reaction Status Date / Time azithromycin Allergy Difficulty Verified 09/04/17 07:50 [From Zithromax Z-Jareth] Breathing NSAIDS (Non-Steroidal Allergy Difficulty Verified 09/04/17 07:50 Anti-Inflamma Breathing All Systems PM: A 10-system review of systems was performed and is negative for pertinent findings except as documented above in the HPI. - Constitutional Constitutional: anorexia, malaise, no chills, no fever(s), no night sweats - EENT Eyes: no change in vision, no discharge, no pain, no photophobia Ears: no ear discharge, no ear pain, no tinnitus Nose, mouth and throat: no dysphagia, no nasal discharge, no neck pain, no sore throat - Cardiovascular Cardiovascular ROS IM: chest pain, no diaphoresis, no dyspnea, no lightheadedness, no palpitations, no syncope - Respiratory Respiratory: no cough, no dyspnea, no wheezing, no excessive phlegm production - Gastrointestinal Gastrointestinal: abdominal pain, nausea, no diarrhea, no hematemesis, no hematochezia, no melena, no vomiting - Genitourinary Genitourinary: no change in urinary stream, no dysuria, no flank pain, no hematuria - Musculoskeletal Musculoskeletal ROS IM: no numbness, no tingling - Integumentary Integumentary IM: no rash, no unusual bruising - Neurological Neurological ROS: no confusion, no convulsions, no focal weakness, no numbness, no tingling, no tremor(s) - Hematologic/Lymphatic Hematologic/Lymphatic: no easy bruising - Constitutional Vitals: Temp Pulse Resp BP Pulse Ox 98.4 F 71 18 117/72 96 05/03/18 06:45 05/03/18 06:45 05/03/18 06:45 05/03/18 06:45 05/03/18 06:45 General appearance: Present: cooperative, A&O X 3, morbidly obese, pleasant, answers questions appropriately Exam: General: Patient is alert, moderate distress, oriented x 3 Head: atraumatic, normocephalic, ENT: Mucous membranes moist Neck: normal inspection, trachea midline, full ROM, no carotid bruits Chest: normal inspection, symmetric chest rise, left-sided chest wall tenderness present Respiratory: Good respiratory effort. Normal breath sounds. No wheezing or crackles. Cardiovascular: Regular rate and rhythm. s1 and s2 normal No clicks, rubs, gallops, or murmurs. No pedal edema Abdomen: Abdomen is soft, generalized tenderness without guarding or rigidity. Bowel sounds are present Musculoskeletal: Spontaneously moving all extremities Skin: warm, dry, intact. Neuro: Alert oriented x 3 normal cranial nerves, no focal deficits Psych: Patient's affect is anxious Internal Med - H&P Results - Labs CBC & Chem 7: 05/03/18 07:39 05/03/18 07:39 Labs: Short CBC 05/03/18 Range/Units 07:39 WBC 8.6 (4.3-11.1) K/mcL Hgb 12.2 (11.5-15.4) g/dL Hct 36.4 (35.3-44.9) % Plt Count 197 (140-400) K/mcL Neutrophils # 5.1 (1.6-8.9) K/mcL BMP 05/03/18 07:39 Sodium 131 L Potassium 2.9 L Chloride 98 Carbon Dioxide 24 BUN 12 Creatinine 0.90 Glucose 132 H Calcium 10.2 Liver Function 05/03/18 Range/Units 07:39 Total Bilirubin 0.4 (0.3-1.0) mg/dL Direct Bilirubin 0.0 (0.0-0.2) mg/dL AST 14 (13-39) Units/L ALT 20 (7-52) Units/L Alkaline Phosphatase 96 (34-104) Units/L Albumin 3.7 (3.5-5.7) g/dL Initial labs done at [facility] showed a lipase level of greater than 400 suggesting pancreatitis. Troponins were normal. Her creatinine was 1.7. - ABG Interpretation ABG results: 05/03/18 08:00 VBG pH 7.39 VBG pCO2 41 VBG pO2 117 H VBG HCO3 25 - Impressions CT of the abdomen and pelvis done at [facility] shows acute pancreatitis - Assessment and Plan (1) Acute pancreatitis Current Visit: Yes Status: Acute Assessment and plan: Patient with acute pancreatitis. Most likely due to hypertriglyceridemia. C ontinue to keep nothing by mouth. Monitor vital signs. Pain control. As her pain improves, we will transition her to clear liquid diet. Lipase levels have come down now. Qualifiers: Pancreatitis type: other Acute pancreatitis complication: no infection or necrosis Qualified Code(s): K85.80 - Other acute pancreatitis without necrosis or infection (2) Diabetic ketoacidosis Current Visit: Yes Status: Acute Assessment and plan: Diabetic ketoacidosis on initial presentation. Now resolved. Will leave patient on intravenous insulin drip at a lower rate as she is nothing by mouth. Continue IV fluids and transition to D5 if blood sugars less than 200. Qualifiers: Diabetes mellitus type: type 2 Diabetes mellitus complication detail: without coma Qualified Code(s): E11.10 - Type 2 diabetes mellitus with ketoacidosis without coma (3) Chest pain Current Visit: Yes Status: Acute Assessment and plan: Patient reports chest pain. Nonradiating. Monitor with telemetry. Trend troponins. Initial troponins were negative. Will obtain 2-D echocardiogram. She does have reproducible chest wall tenderness. Qualifiers: Chest pain type: precordial pain Qualified Code(s): R07.2 - Precordial pain (4) High triglycerides Current Visit: Yes Status: Acute Assessment and plan: Patient has elevated triglycerides and cholesterol levels. We will continue fenofibrate. Patient is also on atorvastatin which can also cause pancreatitis but at this time is more likely to be due to her hypertriglyceridemia. Reviewing patient's records, she has had triglycerides greater than 5000 in the past. (5) Diabetes Current Visit: Yes Status: Chronic Assessment and plan: Patient currently nothing by mouth and on insulin drip. Will monitor blood sugars every hour. 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 We will resume home medications Qualifiers: Hypertension type: essential hypertension Qualified Code(s): I10 - Essential (primary) hypertension - Time Spent With Patient Total time spent is greater than 50% in coordination of care (as documented) at patient's floor/unit and/or counseling patient:
[2018-05-03] MEDS ORDERED: Insulin DETEMIR 100 UNIT/ML X5UNITS SQ SCH (09:00)
[2018-05-03] MEDS ORDERED: Ketorolac 15 MG/ML VIAL IVP PRN (09:09)
[2018-05-03] MEDS ORDERED: OXYCODONE Oral CONC 10 MG/0.5 ML ORAL.SYG SL PRN (09:09)
[2018-05-03] MEDS: 0.9 % Sodium Chloride w KCl 40 MEQ/1,000 ML MLS IVC SCH ×2 (09:16→16:54)
[2018-05-03] MEDS: OXYCODONE Oral CONC 10 MG/0.5 ML ORAL.SYG SL PRN ×2 (09:25→13:55)
[2018-05-03] MEDS: Insulin Human Regular 100 UNIT in 0.9 % Sodium Chloride 100 ML IVC SCH (09:39)
[2018-05-03 09:58] LABS: Troponin I < 0.03 ng/mL (< 0.04)
[2018-05-03] MEDS: *HR* FentaNYL (PF) 100 MCG/2 ML VIAL IVP PRN ×2 (11:07→14:49)
[2018-05-03] MEDS ORDERED: Insulin LISPRO 300 UNITS/3 ML VIAL SQ SCH ×2 (11:30→21:00)
[2018-05-03] MEDS: Topiramate 25 MG TABLET PO SCH ×2 (11:51→20:40)
[2018-05-03] MEDS: tiZANidine 4 MG TABLET PO SCH ×2 (13:54→20:38)
[2018-05-03] MEDS: Gabapentin 100 MG CAPSULE PO SCH ×2 (13:55→20:46)
[2018-05-03] MEDS ORDERED: 0.9 % Sodium Chloride 1,000 ML ONE (17:45)
[2018-05-03] MEDS ORDERED: 0.9 % Sodium Chloride 1,000 ML IVC ONE (17:46)
[2018-05-03] MEDS: Fenofibrate 54 MG TABLET PO SCH (20:46)
[2018-05-03] MEDS: Mirtazapine 15 MG TABLET PO SCH (20:46)
[2018-05-03] MEDS: Potassium Chloride 40 MEQ in D5% in 0.9% NACL 1,000 ML IVC SCH (22:26)
[2018-05-04] MEDS ORDERED: 0.9 % Sodium Chloride 1,000 ML IVC ONE ×3 (05:12→14:03)
[2018-05-04] MEDS: *HR* Enoxaparin 40 MG/0.4 ML SYRINGE SQ SCH (05:16)
[2018-05-04] MEDS: 0.9 % Sodium Chloride w KCl 40 MEQ/1,000 ML MLS IVC SCH (05:21)
[2018-05-04] MEDS: Insulin Human Regular 100 UNIT in 0.9 % Sodium Chloride 100 ML IVC SCH (06:09)
[2018-05-04 06:15] LABS: Amylase < 10 Units/L (29-103); Chol/HDL Ratio 13.1 (0-4.9); Cholesterol 275 mg/dL (< 200); HDL Cholesterol 21 mg/dL (40-59); Triglycerides 778 mg/dL (< 150)
[2018-05-04] MEDS: Levothyroxine 25 MCG TABLET PO SCH (08:20)
[2018-05-04] MEDS: Gabapentin 100 MG CAPSULE PO SCH ×3 (08:20→21:23)
[2018-05-04] MEDS: tiZANidine 4 MG TABLET PO SCH (08:21)
[2018-05-04] MEDS ORDERED: Diltiazem CD (24hr) 300 MG CAPSULE PO SCH (09:00)
[2018-05-04] MEDS ORDERED: *HR* Metoprolol 5 MG/5 ML VIAL IVP PRN (10:21)
[2018-05-04] MEDS ORDERED: 0.9 % Sodium Chloride 500 ML IVC SCH (10:30)
[2018-05-04] MEDS ORDERED: Insulin Human Regular 100 UNIT in 0.9 % Sodium Chloride 100 ML IVC SCH (10:32)
--- NOTE | 2018-05-04 10:36 | Internal Med Progress Note ---
Hospitalist Progress Note - Encounter Date of Encounter: 05/04/18 Time of Encounter: 10:34 - Subjective Interval History: Patient complains of poor appetite. BP has been low after she had Fentanyl with severe abdominal pain. Currently still having abdominal pain. Denies fevers/chills. - Exam Vitals: Temp Pulse Resp BP Pulse Ox 98.8 F 74 18 95/51 96 05/04/18 07:25 05/04/18 07:25 05/04/18 07:25 05/04/18 07:25 05/04/18 07:25 Exam: General: Patient is alert, AAO x3, NAD Head: atraumatic, normocephalic, ENT: Mucous membranes moist Neck: normal inspection, trachea midline, full ROM, no carotid bruits Chest: normal inspection, symmetric chest rise, left-sided chest wall tenderness present Respiratory: Good respiratory effort. Normal breath sounds. No wheezing or crackles. Cardiovascular: Regular rate and rhythm. s1 and s2 normal No clicks, rubs, gallops, or murmurs. No pedal edema Abdomen: Abdomen is soft, generalized tenderness without guarding or rigidity. Bowel sounds are present Musculoskeletal: Spontaneously moving all extremities Skin: warm, dry, intact. Neuro: Alert oriented x 3 normal cranial nerves, no focal deficits Psych: Patient's affect is anxious - Assessment and Plan (1) Acute pancreatitis Current Visit: Yes Status: Acute Assessment and Plan: Patient with acute pancreatitis. Most likely due to hypertriglyceridemia. Pain control. As her pain improves, we will transition her to clear liquid diet. Continue insulin drip for hypertriglyceridemia, which are improving. ADAT (2) Diabetes Current Visit: Yes Status: Chronic Assessment and Plan: Patient currently nothing by mouth and on insulin drip. Will continue insulin drip because of hypertriglyceridemia. Will need IV Dextrose during this time. (3) Chest pain Current Visit: Yes Status: Acute Assessment and Plan: Nonradiating. Monitor with telemetry. Trended troponin and are negative. Echocardiogram shows LV EF 55% with moderate diastolic disfunction otherwise no findings. She does have reproducible chest wall tenderness. (4) Hypertension Current Visit: Yes Status: Chronic Assessment and Plan: Blood pressure is currently lower normal. BP meds Cardizem and Metoprolol are held for now. Continue IV fluids and manual BP checks. It appears auto is not as accurate for this patient. (5) High triglycerides Current Visit: Yes Status: Acute Assessment and Plan: Patient has elevated triglycerides and cholesterol levels. We will continue fenofibrate. Patient is also on atorvastatin which can also cause pancreatitis but at this time is more likely to be due to her hypertriglyceridemia. Reviewing patient's records, she has had triglycerides greater than 5000 in the past. Continue Insulin drip today. Continue fenofibrate and Lipitor. Add niacin today. (6) Diabetic ketoacidosis Current Visit: Yes Status: Acute - Time Spent with Patient Total time spent is greater than 50% in coordination of care (as documented) at patient's floor/unit and/or counseling patient: Internal Medicine: Result - Labs CBC & Chem 7: 05/03/18 07:39 05/03/18 07:39 Labs: Cardiac Enzymes 05/03/18 Range/Units 17:38 Troponin I < 0.03 (< 0.04) ng/mL - Impressions Impressions Echocardiogram 05/03/18 09:13 Impressions: LVEF 55%. Moderate left ventricular diastolic dysfunction. Normal right ventricular structure and function. Mild mitral regurgitation. Mild tricuspid regurgitation. No pulmonary hypertension. Left Ventricular Wall Motion: Rest Echo Findings All wall segments showed normal motion. Findings: Study Quality * Technically adequate exam. ECG Findings * Sinus bradycardia. Left Ventricle * LVEF 55%. * Normal LV chamber size, wall thickness and function. * Moderate left ventricular diastolic dysfunction. Right Ventricle * Normal right ventricular structure and function. Left Atrium * Mildly dilated left atrium. Right Atrium * Mildly dilated right atrium. Aortic Valve * No aortic regurgitation. * Trileaflet aortic valve. * No aortic stenosis. Mitral Valve * Normal mitral valve structure. * No mitral stenosis. * Mild mitral regurgitation. Tricuspid Valve * Tricuspid valve not well visualized. * Mild tricuspid regurgitation. Pulmonic Valve * Pulmonic valve is not well visualized. * No pulmonic stenosis. * No pulmonic regurgitation. Pulmonary Artery * Pulmonary artery not well visualized. Aorta * Normally sized aortic root. Pericardium * There is no pericardial effusion present. Interatrial Septum * No evidence of PFO by color Doppler. IVC * The IVC is not well evaluated. Consult Discharge Plan - Plan Referrals: Alexander Johns, DO [Primary Care Provider] - (1) Acute pancreatitis Qualifiers: Pancreatitis type: other Acute pancreatitis complication: no infection or necrosis Qualified Code(s): K85.80 - Other acute pancreatitis without necrosis or infection (2) Diabetes Qualifiers: Diabetes mellitus type: type 2 Diabetes mellitus custodial insulin use: with custodial use Diabetes mellitus complication status: with hyperglycemia Qualified Code(s): E11.65 - Type 2 diabetes mellitus with hyperglycemia; Z79.4 - watermaster (current) use of insulin (3) Chest pain Qualifiers: Chest pain type: precordial pain Qualified Code(s): R07.2 - Precordial pain (4) Hypertension Qualifiers: Hypertension type: essential hypertension Qualified Code(s): I10 - Essential (primary) hypertension (6) Diabetic ketoacidosis Qualifiers: Diabetes mellitus type: type 2 Diabetes mellitus complication detail: without coma Qualified Code(s): E11.10 - Type 2 diabetes mellitus with ketoacidosis without coma
[2018-05-04] MEDS: Topiramate 25 MG TABLET PO SCH ×2 (10:46→21:28)
[2018-05-04 11:16] LABS: BUN/Creatinine Ratio 12 (6-26); Blood Urea Nitrogen 9 mg/dL (6-20); Calcium 9.2 mg/dL (8.6-10.3); Carbon Dioxide 20 mEq/L (23-29); Chloride 109 mEq/L (98-107); Glucose 220 mg/dL (70-105); Osmolality,Calculated 285 (280-300); Potassium 4.1 mEq/L (3.5-5.1); Sodium 135 mEq/L (136-145); eGFR For Non-African Americans > 60 (> 60)
[2018-05-04] MEDS: Potassium Chloride 40 MEQ in D5% in 0.9% NACL 1,000 ML IVC SCH (12:35)
[2018-05-04] MEDS ORDERED: SODIUM CHLORIDE 0.9% IV ONE (14:59)
[2018-05-04] MEDS ORDERED: INSULIN HUMAN REGULAR IV ONE (14:59)
[2018-05-04] MEDS ORDERED: *HR* Dextrose 50 % in Water (Syg) 50 ML SYRINGE IVP ONE (15:00)
[2018-05-04] MEDS ORDERED: D10% in Water 500 ML IV SOLUTION IVC SCH (15:15)
--- NOTE | 2018-05-04 15:43 | Pulmonology Consult Note ---
<Sylvie Bundy - Last Filed: 05/04/18 18:19> Date of Encounter: 05/04/18 Time of Encounter: 15:36 Assessment and Plan (1) Acute hypotension Current Visit: Yes Status: Acute * Patient upon arrival to ICU is hypotensive with BP of 92/49, repeat 76/46 with HR of 46, was down to 30s * Suspect likely result of cardizem administration this am - 300mg cardizem given at 0820, patient no longer taking this medication as an outpatient per medication reconciliation * Given CCB toxicity, will administer Dextrose 50g/hour bolus for 0.5g/kg/hour - will be given as 25g per hour via D50% bolus with 25g per hour of D10% infusion * Will given Insulin 90U bolus for 1.0U/kg/hr with goal to reverse calcium channel rocio toxicity and improve HR to above 60 and BP above 100s systolic * Will obtain Chest XR, troponin, EKG, Blood cultures, PT/INR, PTT, ionized calcium * Glucagon 2mg IVP given * q30 min accucheck with goal to keep glucose 100-200 * If blood glucose stays stable for four hours, will space to q1 hour accuchecks * Potassium chloride 10mEq, 100ml/hour q 1 hr prn for potassium <3.5 * Recheck BMP q 4hours * EPIV placed in left cephalic vein, no need for central line placement * Will continue to monitor * Cardiology consulted, appreciate their recommendations (2) Chest pain Current Visit: Yes Status: Acute * Patient complaining of chest pain in the left upper chest at this time. Will obtain Chest XR, EKG, and trend troponin * Lactate and blood cultures drawn along with PT/INR, PTT * Echo shows EF of 55% * Repeat EKG here shows Bradycardia without acute ischemic changes or arrhythmia Qualifiers: Chest pain type: precordial pain Qualified Code(s): R07.2 - Precordial pain (3) Acute pancreatitis Current Visit: Yes Status: Acute * Per history was the reason for patients presentation, CT from [facility] reportedly shows evidence of pancreatitis with elevated lipase which is now WNL * Will continue to monitor abdominal pain and increase diet as tolerated Qualifiers: Pancreatitis type: other Acute pancreatitis complication: no infection or necrosis Qualified Code(s): K85.80 - Other acute pancreatitis without necrosis or infection (4) DVT prophylaxis Current Visit: Yes Status: Acute * On lovenox 40mg History of Present Illness Consult date: 05/04/18 Requesting physician: Shelli Keys Reason for consult: other (hypotension) History of present illness: Patient admitted as transfer from [facility] on 05/03/18 for acute pancreatitis. The patients lipase has trended downwards and her source thought to be secondary to hypertriglyceridemia. She also complains of chest pain which is reporoducible. Troponins negative x2 with no acute ischemic EKG changes. Past Med Surg Social Fam HX - Past Medical History Medical history: asthma, diabetes, hypertension Additional medical history: htn. hypothyroid. ear lesion. anxiety as acute reaction to exceptional stress. DM. Tachycardia - Past Surgical History Additional surgical history: c section. tubal ligation. hysterectomy. appendectomy. parathyroidectomy - Social History Smoking Status: Never smoker Alcohol use: none Drug use: none Medications and Allergies Albuterol Sulfate [Albuterol Inhaler] 2 puff IH Q4-6H PRN 09/04/17 [History] Levothyroxine Sodium 25 mcg PO DAILY 09/04/17 [History] Metoprolol Succinate 100 mg PO DAILY 09/04/17 [History] Mirtazapine [Remeron] 45 mg PO HS 09/04/17 [History] Tizanidine HCl 4 mg PO QID 09/04/17 [History] Atorvastatin [Lipitor] 80 mg PO HS #60 tablet 09/06/17 [Rx] Buspirone HCl [Buspar] 10 mg PO BID 05/04/18 [History] Escitalopram [Lexapro] 10 mg PO DAILY 05/04/18 [History] Insulin Degludec [Tresiba Flextouch U-100] 55 unit SQ DAILY 05/04/18 [History] Insulin LISPRO [HumaLOG] 0 - 18 units SQ TIDWM 05/04/18 [History] Insulin LISPRO [Humalog Kwikpen U-100] 20 unit SQ TID 05/04/18 [History] Losartan/HCTZ [Hyzaar 50-12.5 Tablet] 1 tab PO DAILY 05/04/18 [History] Metoclopramide [Reglan] 10 mg PO TID 05/04/18 [History] Allergy/AdvReac Type Severity Reaction Status Date / Time azithromycin Allergy Difficulty Verified 05/04/18 13:18 [From Zithromax Z-Jareth] Breathing NSAIDS (Non-Steroidal Allergy Difficulty Verified 05/04/18 13:18 Anti-Inflamma Breathing All Systems: The remainder of the systems were reviewed and are negative - Constitutional Constitutional: as per HPI, fatigue - EENT Eyes: no loss of vision Nose, mouth and throat: no headache(s) - Cardiovascular Cardiovascular: chest pain - Respiratory Respiratory: no cough, no dyspnea - Gastrointestinal Gastrointestinal: abdominal pain Physical Examination Vital Signs: Vital Signs, Last 4 Hours Temp Pulse Resp BP Pulse Ox 05/04/18 15:00 47 14 76/46 97 05/04/18 14:30 97.7 F 45 14 92/49 96 05/04/18 12:03 97.6 F 46 20 112/78 94 General appearance: no acute distress, alert Eyes: nonicteric ENT: oropharynx dry Effort: normal Inspection: normal Auscultation: bilateral: clear Cardiovascular: other (bradycardic) Gastrointestinal: normoactive bowel sounds, soft, tender (diffuse), non- distended Integumentary: normal Extremities: no cyanosis Musculoskeletal: no deformities normal mental status, non-focal exam mood appropriate, affect normal Results - Laboratory Findings CBC and BMP: 05/04/18 15:35 05/04/18 17:39 Abnormal lab findings: Abnormal lab results VBG pO2 117 mmHg (25-50) H 05/03/18 08:00 Sodium 135 mEq/L (136-145) L 05/04/18 10:35 Chloride 109 mEq/L (98-107) H 05/04/18 10:35 Carbon Dioxide 20 mEq/L (23-29) L 05/04/18 10:35 Glucose 220 mg/dL (70-105) H 05/04/18 10:35 POC Glucose 184 mg/dL (70-99) H 05/04/18 11:41 Serum Total Protein 6.0 g/dL (6.4-8.9) L 05/03/18 07:39 Globulin 2.3 g/dL (2.4-3.5) L 05/03/18 07:39 Triglycerides 778 mg/dL (< 150) H 05/04/18 04:35 Cholesterol 275 mg/dL (< 200) H 05/04/18 04:35 HDL Cholesterol 21 mg/dL (40-59) L 05/04/18 04:35 Cholesterol/HDL Ratio 13.1 (0-4.9) H 05/04/18 04:35 Amylase < 10 Units/L (29-103) L 05/04/18 04:35 - Diagnostic Findings Chest x-ray: report reviewed, image reviewed - Clinical Findings Intake & Output: Intake & Output 05/03/18 05/04/18 05/04/18 23:59 07:59 15:59 Intake Total 1208.5 / 1208.5 2.5 / 2.5 1540.5 / 1540.5 Output Total 150 / 150 500 / 500 300 / 300 Balance 1058.5 / 1058.5 -497.5 / -497.5 1240.5 / 1240.5 Weight 97.5 kg 97.1 kg Consult Discharge Plan - Plan Referrals: Alexander Johns DO [Primary Care Provider] - <Gurvinder Shea - Last Filed: 05/04/18 19:24> Date of Encounter: 05/04/18 All Systems: The remainder of the systems were reviewed and are negative Physical Examination Vital Signs: Vital Signs, Last 4 Hours Temp Pulse Resp BP Pulse Ox 05/04/18 18:00 56 24 101/47 93 05/04/18 17:00 53 26 107/58 98 05/04/18 16:08 97.7 F 05/04/18 16:00 48 24 101/57 93 Results - Laboratory Findings CBC and BMP: 05/04/18 15:35 05/04/18 17:39 PT/INR, D-dimer PT 11.5 Seconds (9.4-12.1) 05/04/18 15:35 Abnormal lab findings: Abnormal lab results WBC 11.4 K/mcL (4.3-11.1) H 05/04/18 15:35 RBC 3.39 M/mcL (3.82-4.97) L 05/04/18 15:35 Hgb 10.3 g/dL (11.5-15.4) L D 05/04/18 15:35 Hct 32.3 % (35.3-44.9) L 05/04/18 15:35 VBG pO2 117 mmHg (25-50) H 05/03/18 08:00 Sodium 133 mEq/L (136-145) L 05/04/18 17:39 Potassium 3.2 mEq/L (3.5-5.1) L 05/04/18 17:39 Chloride 109 mEq/L (98-107) H 05/04/18 17:39 Carbon Dioxide 19 mEq/L (23-29) L 05/04/18 17:39 Glucose 246 mg/dL (70-105) H 05/04/18 17:39 POC Glucose 184 mg/dL (70-99) H 05/04/18 11:41 Venous Ioniz Calcium 1.40 mmol/L (1.15-1.35) H 05/04/18 15:48 Serum Total Protein 6.0 g/dL (6.4-8.9) L 05/03/18 07:39 Globulin 2.3 g/dL (2.4-3.5) L 05/03/18 07:39 Triglycerides 778 mg/dL (< 150) H 05/04/18 04:35 Cholesterol 275 mg/dL (< 200) H 05/04/18 04:35 HDL Cholesterol 21 mg/dL (40-59) L 05/04/18 04:35 Cholesterol/HDL Ratio 13.1 (0-4.9) H 05/04/18 04:35 Amylase < 10 Units/L (29-103) L 05/04/18 04:35 - Microbiology Findings Microbiology Findings: Microbiology, Last 48 Hours 05/04/18 15:35 Blood Culture - Preliminary Peripheral Venipuncture Culture is incubating and being continuously monitored for growth. Final report to follow. 05/04/18 15:35 Blood Culture - Preliminary Peripheral Venipuncture Culture is incubating and being continuously monitored for growth. Final report to follow. - Clinical Findings Intake & Output: Intake & Output 05/04/18 05/04/18 05/04/18 07:59 15:59 23:59 Intake Total 2.5 / 2.5 1540.5 / 1540.5 1432.5 / 1432.5 Output Total 500 / 500 300 / 300 Balance -497.5 / -497.5 1240.5 / 1240.5 1432.5 / 1432.5 Weight 97.5 kg 97.1 kg - Attending Attestation I saw and evaluated this patient and my medical decision-making was reviewed with the Resident Physician. I agree with the documented findings, disposition and treatment plan as described except to the extent set forth below. We independently had [id number] contact with the patient I spent 40 minutes of Critical Care time with this patient. It involved decision making of high complexity to assess, manipulate, and support vital organ system failure and/or to prevent further life threatening deterioration of the patient's condition. The time involved in the performance of separately reportable procedures was not counted toward critical care time. Patient seen and examined at bedside Labs, radiology, chart personally reviewed. Management was reviewed during multidisciplinary critical care rounds. [employer]: Patient is conscious oriented 3 but has on and off lethargy most likely due to hypotension secondary to calcium channel rocio toxicity. Pulm: Patient is acceptable oxygenation and ventilation. Cards: Patient has symptomatic bradycardia with hypotension troponins being negative and echo showed normal LV function most likely due to this accidental dose of Cardizem which was given in the floor. Patient was tried on Glucophage and did not respond to start her on high dose insulin drip to help in inotropic action. In case she needs vasopressor norepinephrine will be there vasopressor of choice we can give temperately through the ultrasound-guided peripheral IV which was inserted in the basilic vein. I suspect this vasopressor therapy if at all she needs will be temporary. FEN-GI: To advance diet as tolerated Renal: Labs and output were reviewed to do intake output monitoring ID: No active infectious disease issues blood cultures were sent Heme/Onc: Labs were reviewed Endo: Glucose Monitored Integ/MSK: Skin Care per routine ICU Nursing Protocol to prevent ulcers. Lines: All lines examined without evidence of infection : Dispo: To remain in the ICU today CODE: Full Code
[2018-05-04 15:47] LABS: Basophils # 0.1 K/mcL (0.0-0.2); Basophils % 0.5 %; Eosinophils # 0.5 K/mcL (0.0-0.6); Eosinophils % 4.1 %; Hematocrit 32.3 % (35.3-44.9); Immature Granulocytes % 0.4 % (0-4); Lymphocytes # 2.3 K/mcL (0.6-4.6); Lymphocytes % 20.1 %; Mean Corpuscular HGB Conc 31.9 g/dL (31.6-35.5); Mean Corpuscular Hemoglobin 30.4 pg (28.0-33.3); Mean Corpuscular Volume 95.3 fL (83.0-100.0); Mean Platelet Volume 10.9 fL (9.4-12.4); Monocytes # 0.6 K/mcL (0.0-1.3); Monocytes % 4.8 %; Neutrophils # 7.9 K/mcL (1.6-8.9); Platelet Count 180 K/mcL (140-400); Red Blood Count 3.39 M/mcL (3.82-4.97); Red Cell Distribution Width 13.2 % (11.5-14.5); Segmented Neutrophils % 70.1 %
[2018-05-04 15:49] LABS: Hemoglobin 10.3 g/dL (11.5-15.4)
[2018-05-04 15:53] LABS: Prothrombin Time 11.5 Seconds (9.4-12.1)
[2018-05-04] MEDS: D10% in Water 500 ML IVC SCH ×5 (16:07→22:37)
[2018-05-04 16:10] LABS: BUN/Creatinine Ratio 12 (6-26); Blood Urea Nitrogen 9 mg/dL (6-20); Carbon Dioxide 22 mEq/L (23-29); Chloride 111 mEq/L (98-107); Glucose 134 mg/dL (70-105); Osmolality,Calculated 281 (280-300); Potassium 3.5 mEq/L (3.5-5.1); Sodium 135 mEq/L (136-145); eGFR For Non-African Americans > 60 (> 60)
[2018-05-04] MEDS: Insulin Human Regular 250 UNIT in 0.9 % Sodium Chloride 250 ML IVC SCH ×2 (16:17→21:10)
[2018-05-04] MEDS: *HR* Dextrose 50 % in Water (Syg) 50 ML SYRINGE IVP SCH ×9 (17:05→23:59)
[2018-05-04 17:19] LABS: Thyroid Stimulating Hormone 0.691 mcIU/mL (0.340-5.600)
--- NOTE | 2018-05-04 17:58 | Cardiology Consult Note ---
Date of Encounter: 05/04/18 Time of Encounter: 17:47 Assessment and Plan (1) Acute hypotension Current Visit: Yes Status: Acute Acute hypotension and bradycardia after the administration of Cardizem accidentally. With supportive care, including glucose/insulin and aggressive hydration, her hemodynamics seem to be slowly improving. Her most recent blood pressure is 107/58 with a heart rate of 53. She is awake and coherent. At this point, there is no compelling indication for acute cardiovascular intervention. Continue supportive care. Thankfully, recent serial troponins are negative and echocardiogram demonstrates normal LV function. If needed, we could consider dopamine for hemodynamic support. Hopefully, she will continue to respond to other supportive therapies offered thus far. Discussion w patient/family: The assessment and plan as outlined above was discussed with the patient and/or family members who expressed understanding and agreement. All questions were answered. Thank you for involving us in the care of your patient. Please call with any questions. History of Present Illness Consult date: 05/04/18 Requesting physician: Shelli Keys Consult reason: Bradycardia Chief complaint: Abdominal pain History of present illness: Ms. Larkin is a 43 year old female with a history of diabetes. She presented with complaints of abdominal pain. Per reports, she is being treated for acute pancreatitis. Interestingly, her amylase and lipase are normal. Per reports, outside imaging demonstrated evidence of pancreatitis. Her triglycerides are noted to be elevated. Serial troponin measurements are negative. Per reports, patient was given an accidental dose of Cardizem 300 mg. Subsequent, heart rate and blood pressure noted to be low - heart rate 40s, blood pressure less than 100. Since being admitted to the ICU, she has been given 2 L of fluid and started on insulin with D10. Blood pressure and heart rate have improved. Heart rate currently in the 50s, blood pressure 100-110 systolic. Echocardiogram demonstrates normal LV systolic function. Mild MR/TR reported. Nuclear stress test performed 08/2017 was negative for ischemia or prior infarct ion. Past Med Surg Social Fam HX - Past Medical History Medical history: asthma, diabetes, hypertension Additional medical history: htn. hypothyroid. ear lesion. anxiety as acute reaction to exceptional stress. DM. Tachycardia - Past Surgical History Additional surgical history: c section. tubal ligation. hysterectomy. appendectomy. parathyroidectomy - Social History Smoking Status: Never smoker Alcohol use: none Drug use: none Medications and Allergies Albuterol Sulfate [Albuterol Inhaler] 2 puff IH Q4-6H PRN 09/04/17 [History] Levothyroxine Sodium 25 mcg PO DAILY 09/04/17 [History] Metoprolol Succinate 100 mg PO DAILY 09/04/17 [History] Mirtazapine [Remeron] 45 mg PO HS 09/04/17 [History] Tizanidine HCl 4 mg PO QID 09/04/17 [History] Atorvastatin [Lipitor] 80 mg PO HS #60 tablet 09/06/17 [Rx] Buspirone HCl [Buspar] 10 mg PO BID 05/04/18 [History] Escitalopram [Lexapro] 10 mg PO DAILY 05/04/18 [History] Insulin Degludec [Tresiba Flextouch U-100] 55 unit SQ DAILY 05/04/18 [History] Insulin LISPRO [HumaLOG] 0 - 18 units SQ TIDWM 05/04/18 [History] Insulin LISPRO [Humalog Kwikpen U-100] 20 unit SQ TID 05/04/18 [History] Losartan/HCTZ [Hyzaar 50-12.5 Tablet] 1 tab PO DAILY 05/04/18 [History] Metoclopramide [Reglan] 10 mg PO TID 05/04/18 [History] Allergy/AdvReac Type Severity Reaction Status Date / Time azithromycin Allergy Difficulty Verified 05/04/18 13:18 [From Zithromax Z-Jareth] Breathing NSAIDS (Non-Steroidal Allergy Difficulty Verified 05/04/18 13:18 Anti-Inflamma Breathing All Systems Review: The remainder of the systems were reviewed and are negative - Cardiovascular Cardiovascular: as per HPI - Gastrointestinal Gastrointestinal: abdominal pain Physical Examination Vital Signs, Last 4 Hours Temp Pulse Resp BP Pulse Ox 05/04/18 16:08 97.7 F 05/04/18 15:00 47 14 76/46 97 05/04/18 14:30 97.7 F 45 14 92/49 96 General: Conversant, Other (Describes abdominal discomfort.) HEENT: Atraumatic, Normocephaly, Mucus Membranes Moist Neck: No JVD, Normal carotid pulses Cardiac: Reg Rate and Rhythm, Normal S1 and S2, No Murmur Lungs: Normal Breath Sounds, No Wheeze, Rales, Rhonchi Neuro: Alert and responsive, No focal deficits noted Abdomen: Soft, Other (Tender to palpation) Skin: No rashes noted on visualized skin Musculoskeletal: No Chest Wall Tenderness Extremities: No Clubbing, No Cyanosis, No Edema Results 05/04/18 15:35 05/04/18 15:35 Lab Results 05/03/18 05/04/18 05/04/18 17:38 04:35 10:35 WBC Hgb Hct Plt Count INR APTT Sodium 135 L Potassium 4.1 Chloride 109 H Carbon Dioxide 20 L BUN 9 Creatinine 0.75 Glucose 220 H Calcium 9.2 Troponin I < 0.03 Amylase < 10 L TSH 05/04/18 05/04/18 05/04/18 15:35 15:35 15:35 WBC 11.4 H Hgb 10.3 L D Hct 32.3 L Plt Count 180 INR 1.0 APTT Sodium Potassium Chloride Carbon Dioxide BUN Creatinine Glucose Calcium Troponin I < 0.03 Amylase TSH 05/04/18 05/04/18 15:35 15:35 WBC Hgb Hct Plt Count INR APTT 27.1 Sodium 135 L Potassium 3.5 Chloride 111 H Carbon Dioxide 22 L BUN 9 Creatinine 0.78 Glucose 134 H Calcium 9.0 Troponin I Amylase TSH 0.691 - Imaging and Cardiology Stress Test: report reviewed Echo: report reviewed - EKG Interpretation EKG results cardiology: personally reviewed Consult Discharge Plan - Plan Referrals: Alexander Johns DO [Primary Care Provider] -
[2018-05-04 18:17] LABS: BUN/Creatinine Ratio 12 (6-26); Blood Urea Nitrogen 8 mg/dL (6-20); Calcium 8.7 mg/dL (8.6-10.3); Carbon Dioxide 19 mEq/L (23-29); Chloride 109 mEq/L (98-107); Glucose 246 mg/dL (70-105); Osmolality,Calculated 283 (280-300); Potassium 3.2 mEq/L (3.5-5.1); Sodium 133 mEq/L (136-145); eGFR For Non-African Americans > 60 (> 60)
[2018-05-04] MEDS ORDERED: Ketorolac 15 MG/ML VIAL IVP ONE (18:54)
[2018-05-04] MEDS: Mirtazapine 15 MG TABLET PO SCH (21:23)
[2018-05-04] MEDS: Fenofibrate 54 MG TABLET PO SCH (21:23)
[2018-05-04 22:45] LABS: BUN/Creatinine Ratio 9 (6-26); Blood Urea Nitrogen 6 mg/dL (6-20); Calcium 8.8 mg/dL (8.6-10.3); Carbon Dioxide 18 mEq/L (23-29); Chloride 108 mEq/L (98-107); Glucose 225 mg/dL (70-105); Osmolality,Calculated 279 (280-300); Potassium 3.5 mEq/L (3.5-5.1); Sodium 132 mEq/L (136-145); eGFR For Non-African Americans > 60 (> 60)
[2018-05-05] MEDS: D10% in Water 500 ML IVC SCH ×9 (00:41→23:15)
[2018-05-05] MEDS: Insulin Human Regular 250 UNIT in 0.9 % Sodium Chloride 250 ML IVC SCH ×4 (00:42→09:57)
[2018-05-05] MEDS: *HR* Dextrose 50 % in Water (Syg) 50 ML SYRINGE IVP SCH ×10 (02:06→11:07)
[2018-05-05 02:47] LABS: BUN/Creatinine Ratio 7 (6-26); Blood Urea Nitrogen 5 mg/dL (6-20); Calcium 9.4 mg/dL (8.6-10.3); Carbon Dioxide 20 mEq/L (23-29); Chloride 109 mEq/L (98-107); Glucose 267 mg/dL (70-105); Osmolality,Calculated 285 (280-300); Potassium 3.3 mEq/L (3.5-5.1); Sodium 134 mEq/L (136-145); eGFR For Non-African Americans > 60 (> 60)
[2018-05-05] MEDS: *HR* Enoxaparin 40 MG/0.4 ML SYRINGE SQ SCH (05:18)
[2018-05-05] MEDS: Levothyroxine 25 MCG TABLET PO SCH (05:18)
[2018-05-05 05:48] LABS: VBG Ionized Calcium 1.54 mmol/L (1.15-1.35)
[2018-05-05 06:11] LABS: BUN/Creatinine Ratio 6 (6-26); Blood Urea Nitrogen 4 mg/dL (6-20); Calcium 9.4 mg/dL (8.6-10.3); Carbon Dioxide 19 mEq/L (23-29); Chloride 110 mEq/L (98-107); Glucose 211 mg/dL (70-105); Magnesium 1.7 mg/dL (1.6-2.6); Osmolality,Calculated 283 (280-300); Phosphorous < 1.0 mg/dL (2.7-4.5); Potassium 3.2 mEq/L (3.5-5.1); Sodium 135 mEq/L (136-145); eGFR For Non-African Americans > 60 (> 60)
--- NOTE | 2018-05-05 07:28 | Pulmonology Progress Note ---
<RaúlGurvinder santana S - Last Filed: 05/05/18 15:55> Date of Encounter: 05/05/18 Objective PUL Vital signs: Last Vital Signs Temp 97.8 F 05/05/18 15:00 Pulse 63 05/05/18 15:00 Resp 27 05/05/18 15:00 BP 115/53 05/05/18 15:00 Pulse Ox 95 05/05/18 15:00 Results - Laboratory Findings CBC and BMP: 05/04/18 15:35 05/05/18 05:26 PT/INR, D-dimer PT 11.5 Seconds (9.4-12.1) 05/04/18 15:35 Abnormal lab findings: Abnormal lab results WBC 11.4 K/mcL (4.3-11.1) H 05/04/18 15:35 RBC 3.39 M/mcL (3.82-4.97) L 05/04/18 15:35 Hgb 10.3 g/dL (11.5-15.4) L D 05/04/18 15:35 Hct 32.3 % (35.3-44.9) L 05/04/18 15:35 VBG pO2 117 mmHg (25-50) H 05/03/18 08:00 Sodium 135 mEq/L (136-145) L 05/05/18 05:26 Potassium 3.2 mEq/L (3.5-5.1) L 05/05/18 05:26 Chloride 110 mEq/L (98-107) H 05/05/18 05:26 Carbon Dioxide 19 mEq/L (23-29) L 05/05/18 05:26 BUN 4 mg/dL (6-20) L 05/05/18 05:26 Glucose 211 mg/dL (70-105) H 05/05/18 05:26 POC Glucose 205 mg/dL (70-99) H 05/04/18 23:58 Venous Ioniz Calcium 1.54 mmol/L (1.15-1.35) H 05/05/18 05:45 Phosphorus < 1.0 mg/dL (2.7-4.5) L* 05/05/18 05:26 Serum Total Protein 6.0 g/dL (6.4-8.9) L 05/03/18 07:39 Globulin 2.3 g/dL (2.4-3.5) L 05/03/18 07:39 Triglycerides 462 mg/dL (< 150) H 05/05/18 08:50 Cholesterol 275 mg/dL (< 200) H 05/04/18 04:35 HDL Cholesterol 21 mg/dL (40-59) L 05/04/18 04:35 Cholesterol/HDL Ratio 13.1 (0-4.9) H 05/04/18 04:35 Amylase < 10 Units/L (29-103) L 05/04/18 04:35 - Microbiology Findings Microbiology Findings: Microbiology, Last 48 Hours 05/04/18 15:35 Blood Culture - Preliminary Peripheral Venipuncture Culture is incubating and being continuously monitored for growth. Final report to follow. 05/04/18 15:35 Blood Culture - Preliminary Peripheral Venipuncture Culture is incubating and being continuously monitored for growth. Final report to follow. - Clinical Findings Intake & Output: Intake & Output 05/04/18 05/05/18 05/05/18 23:59 07:59 15:59 Intake Total 3082.5 / 3082.5 2622.5 / 2622.5 941.5 / 941.5 Output Total 1250 / 1250 4750 / 4750 2100 / 2100 Balance 1832.5 / 1832.5 -2127.5 / -2127.5 -1158.5 / -1158.5 Weight 102.7 kg Consult Discharge Plan - Plan Referrals: Alexander Johns DO [Primary Care Provider] - - Attending Attestation - Attending Attestation I saw and evaluated this patient and my medical decision-making was reviewed with the Resident Physician. I agree with the documented findings, disposition and treatment plan as described except to the extent set forth below. We independently had [id number] contact with the patient VISION MIXER: Patient is conscious oriented 3 but has on and off lethargy most likely due to hypotension secondary to calcium channel rocio toxicity. Pulm: Patient has acceptable oxygenation and ventilation. Cards: Patient has symptomatic bradycardia with hypotension troponins being negative and echo showed normal LV function most likely due to this accidental dose of Cardizem which was given in the floor. Patient was tried on Glucophage and did not respond to start her on high dose insulin drip to help in inotropic action. In case she needs vasopressor norepinephrine will be there vasopressor of choice we can give temperately through the ultrasound-guided peripheral IV which was inserted in the basilic vein. I suspect this vasopressor therapy if at all she needs will be temporary. 05/05 patient is hemodynamically stable responded well to insulin therapy. Will start reducing the dose of insulin as the half life of controlled-release of Cardizem now been well past now. Patient can be transferred to medical tele metry later. FEN-GI: To advance diet as tolerated. Patient is recovering from pancreatitis Renal: Labs and output were reviewed to do intake output monitoring ID: No active infectious disease issues blood cultures were sent Heme/Onc: Labs were reviewed Endo: Glucose Monitored , will do insulin sliding scale as patient is not fully eating. Start on basal insulin once she takes by mouth intake Integ/MSK: Skin Care per routine ICU Nursing Protocol to prevent ulcers. Lines: All lines examined without evidence of infection : Dispo: Can be transferred to medical telemetry. CODE: Full Code <Sylvie Bundy Kirill - Last Filed: 05/05/18 18:02> Date of Encounter: 05/05/18 Time of Encounter: 07:28 Assessment and Plan (1) Calcium channel rocio adverse reaction Current Visit: Yes Status: Acute * Patient upon arrival to ICU yesterday patient was hypotensive and bradycardic * Suspect likely result of cardizem 300mg CD administration * Patient was given dextrose 0.5g/kg/hour, insulin 1U/kg/hr, glucagon bolus, and potassium supplementation with significant improvement in her blood pressure and heart rate * Now continuing on dextrose and insulin held * Blood pressure now stable in the 120s systolic with heart rate averaging overnight 67. Most recent HR in 80s * Cardiology consulted who agreed with assessment as this is likely Cardizem adverse reaction and given recent echo have no further recommendations given the patient's clinical improvement today * Patient has hypophosphatemia of <1.0 and hypokalemia, will replace today - no anion gap * Given the patient's clinical improvement will likely be able to discharge to floor Qualifiers: Encounter type: initial encounter Qualified Code(s): T46.1X5A - Adverse effect of calcium-channel blockers, initial encounter (2) Chest pain Current Visit: Yes Status: Acute * Chest pain continues to be reproducible on exam * Troponin 2 yesterday were negative * Echo shows EF of 55% Qualifiers: Chest pain type: precordial pain Qualified Code(s): R07.2 - Precordial pain (3) Acute pancreatitis Current Visit: Yes Status: Acute * Continue NPO and fluid rehydration * Tylenol PRN for pain control * Triglyceride down to 462 from 947 yesterday, will discontinue insulin * Patient tolerating ice chips but will hold off on diet given her continued abdominal tenderness. Qualifiers: Pancreatitis type: other Acute pancreatitis complication: no infection or necrosis Qualified Code(s): K85.80 - Other acute pancreatitis without necrosis or infection (4) DVT prophylaxis Current Visit: Yes Status: Acute * On lovenox 40mg Subjective Interval history: Patient's a 43-year-old female with history of diabetes who was admitted to [facility] from [facility] due to DKA and pancreatitis on 05/03/18. On 05/04/18 the patient was given 300 mg Cardizem CD with resultant hypotension and bradycardia which did not respond to fluid administration. The patient was transferred to the ICU for critical care management. Today the patient states she is feeling less fatigued but continues to experience pain in her left upper chest and in her abdomen. She states she is not significantly hungry at this time. She otherwise denies any fever, chills, nausea, vomiting or diarrhea. Objective PUL Vital signs: Last Vital Signs Temp 98.3 F 05/05/18 04:00 Pulse 62 05/05/18 07:00 Resp 20 05/05/18 07:00 BP 105/53 05/05/18 07:00 Pulse Ox 96 05/05/18 07:00 General appearance: no acute distress Eyes: nonicteric ENT: oropharynx moist Neck: supple Effort: normal Cardiovascular: regular rate and rhythm Gastrointestinal: normoactive bowel sounds, soft, tender (Diffusely without guarding, rebound, or rigidity), non-distended Integumentary: normal Extremities: no cyanosis Musculoskeletal: no deformities normal mental status, non-focal exam mood appropriate, affect normal Results - Laboratory Findings CBC and BMP: 05/04/18 15:35 05/05/18 05:26 PT/INR, D-dimer PT 11.5 Seconds (9.4-12.1) 05/04/18 15:35 Abnormal lab findings: Abnormal lab results WBC 11.4 K/mcL (4.3-11.1) H 05/04/18 15:35 RBC 3.39 M/mcL (3.82-4.97) L 05/04/18 15:35 Hgb 10.3 g/dL (11.5-15.4) L D 05/04/18 15:35 Hct 32.3 % (35.3-44.9) L 05/04/18 15:35 VBG pO2 117 mmHg (25-50) H 05/03/18 08:00 Sodium 135 mEq/L (136-145) L 05/05/18 05:26 Potassium 3.2 mEq/L (3.5-5.1) L 05/05/18 05:26 Chloride 110 mEq/L (98-107) H 05/05/18 05:26 Carbon Dioxide 19 mEq/L (23-29) L 05/05/18 05:26 BUN 4 mg/dL (6-20) L 05/05/18 05:26 Glucose 211 mg/dL (70-105) H 05/05/18 05:26 POC Glucose 205 mg/dL (70-99) H 05/04/18 23:58 Venous Ioniz Calcium 1.54 mmol/L (1.15-1.35) H 05/05/18 05:45 Phosphorus < 1.0 mg/dL (2.7-4.5) L* 05/05/18 05:26 Serum Total Protein 6.0 g/dL (6.4-8.9) L 05/03/18 07:39 Globulin 2.3 g/dL (2.4-3.5) L 05/03/18 07:39 Triglycerides 778 mg/dL (< 150) H 05/04/18 04:35 Cholesterol 275 mg/dL (< 200) H 05/04/18 04:35 HDL Cholesterol 21 mg/dL (40-59) L 05/04/18 04:35 Cholesterol/HDL Ratio 13.1 (0-4.9) H 05/04/18 04:35 Amylase < 10 Units/L (29-103) L 05/04/18 04:35 - Microbiology Findings Microbiology Findings: Microbiology, Last 48 Hours 05/04/18 15:35 Blood Culture - Preliminary Peripheral Venipuncture Culture is incubating and being continuously monitored for growth. Final report to follow. 05/04/18 15:35 Blood Culture - Preliminary Peripheral Venipuncture Culture is incubating and being continuously monitored for growth. Final report to follow. - Clinical Findings Intake & Output: Intake & Output 05/04/18 05/04/18 05/05/18 15:59 23:59 07:59 Intake Total 1540.5 / 1540.5 3082.5 / 3082.5 2473.5 / 2473.5 Output Total 300 / 300 1250 / 1250 3300 / 3300 Balance 1240.5 / 1240.5 1832.5 / 1832.5 -826.5 / -826.5 Weight 97.1 kg 102.7 kg
[2018-05-05] MEDS: Gabapentin 100 MG CAPSULE PO SCH ×3 (08:13→20:42)
--- NOTE | 2018-05-05 09:05 | Cardiology Progress Note ---
Date of Encounter: 05/05/18 Time of Encounter: 09:02 Assessment and Plan (1) Acute hypotension Current Visit: Yes Status: Acute Acute hypotension and bradycardia 05/04 after the administration of Cardizem accidentally. With supportive care, including glucose/insulin and aggressive hydration, her hemodynamics seem to be improving. Her most recent BP is 107/55 with HR 60s. She is awake and coherent. 12 hr tele AVG HR 69, SR. No compelling indication for acute cardiovascular intervention. Continue supportive care. Recent serial troponins are negative and TTE demonstrates normal LV function. Cardiology siging off. Reconsult PRN. Discussion w patient/family: The assessment and plan as outlined above was discussed with the patient and/or family members who expressed understanding and agreement. All questions were a nswered. Thank you for involving us in the care of your patient. Please call with any questions. I will discuss all the above with Dr. Ann and make changes as necessary. Subjective Interval history: Reports abdominal pain 10/03 currently. Denies chest pain or dyspnea. Objective Vital Signs, Last 4 Hours Temp Pulse Resp BP Pulse Ox 05/05/18 08:00 67 20 98/54 95 05/05/18 07:55 97.9 F 05/05/18 07:00 63 20 105/53 96 05/05/18 06:00 64 18 129/60 94 Vital Signs Temp Pulse Resp BP Pulse Ox 05/05/18 08:00 67 20 98/54 95 05/05/18 07:55 97.9 F 05/05/18 07:00 63 20 105/53 96 05/05/18 06:00 64 18 129/60 94 05/05/18 05:00 74 20 119/57 94 05/05/18 04:00 98.3 F 79 20 129/64 97 05/05/18 03:46 81 05/05/18 03:00 81 20 122/55 94 05/05/18 02:00 78 18 125/62 94 05/05/18 01:00 75 18 118/56 93 05/05/18 00:38 98.5 F 05/05/18 00:00 69 18 117/38 92 05/04/18 23:29 66 05/04/18 23:00 65 16 103/56 93 05/04/18 22:00 54 20 83/46 95 05/04/18 21:00 55 20 86/49 95 05/04/18 20:00 58 20 90/47 93 05/04/18 19:50 54 05/04/18 19:00 54 22 94/49 93 05/04/18 18:00 56 24 101/47 93 05/04/18 17:00 53 26 107/58 98 05/04/18 16:08 97.7 F 05/04/18 16:00 48 24 101/57 93 05/04/18 15:00 47 14 76/46 97 05/04/18 14:30 97.7 F 45 14 92/49 96 05/04/18 12:03 97.6 F 46 20 112/78 94 05/04/18 10:38 98/62 Intake and Output 05/04/18 05/05/18 05/05/18 23:59 07:59 15:59 Intake Total 3082.5 / 3082.5 2622.5 / 2622.5 Output Total 1250 / 1250 4750 / 4750 Balance 1832.5 / 1832.5 -2127.5 / -2127.5 Intake: IV Fluids 2282.5 / 2282.5 2622.5 / 2622.5 Dextrose 10% Water 500 Ml Ivbag 1500 / 1500 2000 / 2000 500 ML @ 250 mls/hr IVC .Q2H STONE Rx#:[id number] HumuLIN R 250 UNIT In 0.9 % 382.5 / 382.5 622.5 / 622.5 Sodium Chloride 250 ML @ 30 UNIT/HR 30.3 mls/hr IVC CONT STONE Rx#:[id number] Potassium Chloride 10 mEq/100mL 400 / 400 10 meq In 100 ml @ 100 mls/hr IVPB Q1H PRN Rx#:[id number] Oral 800 / 800 Output: Catheter 1250 / 1250 4750 / 4750 Other: Weight 102.7 kg Blood Glucose* 230 146 Patient Weight 05/05/18 23:59 Weight 102.7 kg General: Conversant, No Apparent Distress HEENT: Atraumatic, Normocephaly, Mucus Membranes Moist Neck: No JVD, Normal carotid pulses Cardiac: Reg Rate and Rhythm, Normal S1 and S2, No Murmur Lungs: Normal Breath Sounds, No Wheeze, Rales, Rhonchi Neuro: Alert and responsive, No focal deficits noted Abdomen: Soft Skin: No rashes noted on visualized skin Musculoskeletal: No Chest Wall Tenderness Extremities: No Clubbing, No Cyanosis, No Edema, Normal Pulses Results 05/04/18 15:35 05/05/18 05:26 Lab Results 05/04/18 05/04/18 05/04/18 10:35 15:35 15:35 WBC 11.4 H Hgb 10.3 L D Hct 32.3 L Plt Count 180 INR 1.0 APTT Sodium 135 L Potassium 4.1 Chloride 109 H Carbon Dioxide 20 L BUN 9 Creatinine 0.75 Glucose 220 H Calcium 9.2 Magnesium Troponin I TSH 05/04/18 05/04/18 05/04/18 15:35 15:35 15:35 WBC Hgb Hct Plt Count INR APTT 27.1 Sodium 135 L Potassium 3.5 Chloride 111 H Carbon Dioxide 22 L BUN 9 Creatinine 0.78 Glucose 134 H Calcium 9.0 Magnesium Troponin I < 0.03 TSH 0.691 05/04/18 05/04/18 05/05/18 17:39 22:05 02:13 WBC Hgb Hct Plt Count INR APTT Sodium 133 L 132 L 134 L Potassium 3.2 L 3.5 3.3 L Chloride 109 H 108 H 109 H Carbon Dioxide 19 L 18 L 20 L BUN 8 6 5 L Creatinine 0.67 0.65 0.69 Glucose 246 H 225 H 267 H Calcium 8.7 8.8 9.4 Magnesium Troponin I TSH 05/05/18 05:26 WBC Hgb Hct Plt Count INR APTT Sodium 135 L Potassium 3.2 L Chloride 110 H Carbon Dioxide 19 L BUN 4 L Creatinine 0.62 Glucose 211 H Calcium 9.4 Magnesium 1.7 Troponin I TSH Short CBC 05/04/18 Range/Units 15:35 WBC 11.4 H (4.3-11.1) K/mcL Hgb 10.3 L D (11.5-15.4) g/dL Hct 32.3 L (35.3-44.9) % Plt Count 180 (140-400) K/mcL Neutrophils # 7.9 (1.6-8.9) K/mcL BMP 05/05/18 05/05/18 05/04/18 Range/Units 05:26 02:13 22:05 Sodium 135 L 134 L 132 L (136-145) mEq/L Potassium 3.2 L 3.3 L 3.5 (3.5-5.1) mEq/L Chloride 110 H 109 H 108 H (98-107) mEq/L Carbon Dioxide 19 L 20 L 18 L (23-29) mEq/L BUN 4 L 5 L 6 (6-20) mg/dL Creatinine 0.62 0.69 0.65 (0.60-1.20) mg/dL Glucose 211 H 267 H 225 H (70-105) mg/dL Calcium 9.4 9.4 8.8 (8.6-10.3) mg/dL 05/04/18 05/04/18 05/04/18 Range/Units 17:39 15:35 10:35 Sodium 133 L 135 L 135 L (136-145) mEq/L Potassium 3.2 L 3.5 4.1 (3.5-5.1) mEq/L Chloride 109 H 111 H 109 H (98-107) mEq/L Carbon Dioxide 19 L 22 L 20 L (23-29) mEq/L BUN 8 9 9 (6-20) mg/dL Creatinine 0.67 0.78 0.75 (0.60-1.20) mg/dL Glucose 246 H 134 H 220 H (70-105) mg/dL Calcium 8.7 9.0 9.2 (8.6-10.3) mg/dL Cardiac Enzymes 05/04/18 Range/Units 15:35 Troponin I < 0.03 (< 0.04) ng/mL Impressions Chest X-Ray 05/04/18 13:59 IMPRESSION: Focal vascular crowding underaeration left infrahilar region. Chest radiograph appears otherwise unremarkable. D/ / Gomez Manning / Gomez Manning Interpreting Provider: Gomez Manning Active Medications Acetaminophen (Tylenol) 650 mg PO Q6HR PRN PRN Reason: Mild Pain/Fever Stop: 11/02/18 07:24 Buspirone HCl (Buspar) 10 mg PO BID STONE Stop: 11/02/18 21:01 Last Admin: 05/05/18 08:13 Dose: 10 mg Dextrose (Glucose Tablets) 28 gm PO ONCE PRN PRN Reason: Hypoglycemia Stop: 11/02/18 08:30 Dextrose (Glucose Tablets) 16 gm PO ONCE PRN PRN Reason: Hypoglycemia Stop: 11/02/18 08:30 Dextrose/Water (Dextrose 50% (Syg)) 25 ml IVP AD PRN PRN Reason: Hypoglycemia Stop: 11/02/18 08:30 Dextrose/Water (Dextrose 50% (Syg)) 50 ml IVP Q1H STONE Stop: 11/03/18 16:01 Last Admin: 05/05/18 09:02 Dose: Not Given Enoxaparin Sodium (Lovenox) 40 mg SQ 0600 STONE; Protocol Stop: 11/03/18 06:01 Last Admin: 05/05/18 05:18 Dose: 40 mg Fenofibrate (Tricor) 162 mg PO HS [facility] Stop: 11/02/18 21:01 Last Admin: 05/04/18 21:23 Dose: 162 mg Gabapentin (Neurontin) 100 mg PO TID STONE Stop: 11/02/18 15:01 Last Admin: 05/05/18 08:13 Dose: 100 mg Glucagon (Glucagen) 1 mg IM ONCE PRN PRN Reason: Hypoglycemia Stop: 11/02/18 08:30 Glucose (Gluctose) 15 gm PO ONCE PRN PRN Reason: Hypoglycemia Stop: 11/02/18 08:30 Glucose (Gluctose) 30 gm PO ONCE PRN PRN Reason: Hypoglycemia Stop: 11/02/18 08:30 Dextrose (Dextrose 5%) 1,000 mls @ 100 mls/hr IVC .Q10H PRN PRN Reason: HYPOGLYCEMIA Stop: 11/02/18 08:30 Insulin Human Regular 250 unit (/ Sodium Chloride) 252.5 mls @ 30.3 mls/hr IVC CONT STONE; Protocol Stop: 11/03/18 15:16 Last Admin: 05/05/18 06:47 Dose: 80 unit/hr, 80.8 mls/hr Dextrose (Dextrose 10% Water 500 Ml Ivbag) 500 mls @ 250 mls/hr IVC .Q2H STONE Stop: 11/03/18 15:16 Last Admin: 05/05/18 07:30 Dose: 150 mls/hr Potassium Chloride (Potassium Chloride 10 Meq/100ml) 10 meq in 100 mls @ 100 mls/hr IVPB Q1H PRN PRN Reason: Potassium less than 3.5 Stop: 11/03/18 15:23 Last Infusion: 05/04/18 22:43 Dose: Infused Magnesium Sulfate 2 gm/ Sodium (Chloride) 104 mls @ 52 mls/hr IVPB Q6H PRN PRN Reason: hypomagnesemia Stop: 11/04/18 06:18 Potassium Phosphate 44 meq/ (Sodium Chloride) 260 mls @ 40 mls/hr IVPB Q10H PRN PRN Reason: Phosphate less than 3 Stop: 11/04/18 06:18 Levothyroxine Sodium (Synthroid) 25 mcg PO 0630 [facility] Stop: 11/03/18 06:31 Last Admin: 05/05/18 05:18 Dose: 25 mcg Mirtazapine (Remeron) 45 mg PO HS [facility] Stop: 11/02/18 21:01 Last Admin: 05/04/18 21:23 Dose: 45 mg Naloxone HCl (Narcan) 0.4 mg IVP Q2M PRN PRN Reason: SEE COMMENTS Stop: 11/02/18 07:24 Ondansetron HCl (Zofran) 4 mg IVP Q8HR PRN PRN Reason: Nausea And Vomiting Stop: 11/02/18 07:24 Last Admin: 05/04/18 14:15 Dose: 4 mg Topiramate (Topamax) 25 mg PO Q12H [facility] Stop: 11/02/18 10:46 Last Admin: 05/04/18 21:28 Dose: 25 mg - Imaging and Cardiology Echo: report reviewed - EKG Interpretation EKG results cardiology: other (12 hr tele AVG HR 69, SR) Consult Discharge Plan - Plan Referrals: Alexander Johns DO [Primary Care Provider] -
[2018-05-05] MEDS: Potassium Phosphate 44 MEQ in 0.9 % Sodium Chloride 250 ML IVPB PRN ×2 (09:55→21:24)
[2018-05-05] MEDS: *HR* Dextrose 50 % in Water (Syg) 50 ML SYRINGE IVP PRN ×2 (13:00→15:26)
[2018-05-05] MEDS ORDERED: *HR* FentaNYL (PF) 100 MCG/2 ML VIAL IVP ONE (13:04)
[2018-05-05] MEDS: Insulin LISPRO 300 UNITS/3 ML VIAL SQ SCH ×4 (13:43→23:16)
--- NOTE | 2018-05-05 16:42 | Electrocardiograph Report ---
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
[2018-05-05] MEDS: Mirtazapine 15 MG TABLET PO SCH (20:42)
[2018-05-05] MEDS: Fenofibrate 54 MG TABLET PO SCH (20:42)
[2018-05-05] MEDS: *HR* OxyCODONE Immed Rel 5 MG TABLET PO PRN (20:43)
[2018-05-05 20:44] LABS: Phosphorous 2.4 mg/dL (2.7-4.5)
[2018-05-05 23:01] LABS: BUN/Creatinine Ratio 3 (6-26); Blood Urea Nitrogen 2 mg/dL (6-20); Calcium 8.4 mg/dL (8.6-10.3); Carbon Dioxide 16 mEq/L (23-29); Chloride 112 mEq/L (98-107); Glucose 191 mg/dL (70-105); Osmolality,Calculated 285 (280-300); Potassium 3.5 mEq/L (3.5-5.1); Sodium 137 mEq/L (136-145); eGFR For Non-African Americans > 60 (> 60)
[2018-05-06] MEDS: *HR* OxyCODONE Immed Rel 5 MG TABLET PO PRN ×4 (03:53→22:43)
[2018-05-06] MEDS: Insulin LISPRO 300 UNITS/3 ML VIAL SQ SCH ×5 (03:54→19:55)
[2018-05-06] MEDS: *HR* Enoxaparin 40 MG/0.4 ML SYRINGE SQ SCH (06:09)
[2018-05-06] MEDS: Levothyroxine 25 MCG TABLET PO SCH (06:10)
--- NOTE | 2018-05-06 07:28 | Pulmonology Progress Note ---
<Sylvie Bundy - Last Filed: 05/06/18 07:39> Date of Encounter: 05/06/18 Time of Encounter: 07:26 Assessment and Plan (1) Calcium channel rocio adverse reaction Current Visit: Yes Status: Acute * Patients blood pressure and heart rate remain stable, no longer on insulin or dextrose above her baseline * Ready for transfer back to floor today * Patient upon arrival to ICU on 05/04/18 patient was hypotensive and bradycardic - likely result of cardizem 300mg CD administration * Patient was given dextrose 0.5g/kg/hour, insulin 1U/kg/hr, glucagon bolus, and potassium supplementation with significant improvement in her blood pressure and heart rate * Cardiology consulted who agreed with assessment as this is likely Cardizem adverse reaction and given recent echo have no further recommendations given the patient's clinical improvement Qualifiers: Encounter type: initial encounter Qualified Code(s): T46.1X5A - Adverse effect of calcium-channel blockers, initial encounter (2) Acute pancreatitis Current Visit: Yes Status: Acute * Increase diet as tolerated * Tylenol PRN for pain control Qualifiers: Pancreatitis type: other Acute pancreatitis complication: no infection or necrosis Qualified Code(s): K85.80 - Other acute pancreatitis without necrosis or infection (3) Chest pain Current Visit: Yes Status: Acute * Chest pain continues to be reproducible on exam * Troponin 2 yesterday were negative * Echo shows EF of 55% Qualifiers: Chest pain type: precordial pain Qualified Code(s): R07.2 - Precordial pain (4) DVT prophylaxis Current Visit: Yes Status: Acute * On lovenox 40mg Subjective Interval history: Patient's a 43-year-old female with history of diabetes who was admitted to [facility] from [facility] due to DKA and pancreatitis on 05/03/18. On 05/04/18 the patient was given 300 mg Cardizem CD with resultant hypotension and bradycardia which did not respond to fluid administration. The patient was transferred to the ICU for critical care management. Today the patient states she is feeling less fatigued but continues to experience pain in her left upper chest and in her abdomen. She states she is not significantly hungry at this time. She otherwise denies any fever, chills, nausea, vomiting or diarrhea. Objective PUL Vital signs: Last Vital Signs Temp 98.1 F 05/06/18 07:00 Pulse 66 05/06/18 07:19 Resp 21 05/06/18 07:19 BP 87/63 05/06/18 07:19 Pulse Ox 95 05/06/18 07:19 Results - Laboratory Findings CBC and BMP: 05/04/18 15:35 05/05/18 20:15 PT/INR, D-dimer PT 11.5 Seconds (9.4-12.1) 05/04/18 15:35 Abnormal lab findings: Abnormal lab results WBC 11.4 K/mcL (4.3-11.1) H 05/04/18 15:35 RBC 3.39 M/mcL (3.82-4.97) L 05/04/18 15:35 Hgb 10.3 g/dL (11.5-15.4) L D 05/04/18 15:35 Hct 32.3 % (35.3-44.9) L 05/04/18 15:35 VBG pO2 117 mmHg (25-50) H 05/03/18 08:00 Chloride 112 mEq/L (98-107) H 05/05/18 20:15 Carbon Dioxide 16 mEq/L (23-29) L 05/05/18 20:15 BUN 2 mg/dL (6-20) L 05/05/18 20:15 BUN/Creatinine Ratio 3 (6-26) L 05/05/18 20:15 Glucose 191 mg/dL (70-105) H 05/05/18 20:15 POC Glucose 142 mg/dL (70-99) H 05/05/18 23:37 Calcium 8.4 mg/dL (8.6-10.3) L 05/05/18 20:15 Venous Ioniz Calcium 1.54 mmol/L (1.15-1.35) H 05/05/18 05:45 Phosphorus 2.4 mg/dL (2.7-4.5) L 05/05/18 20:15 Serum Total Protein 6.0 g/dL (6.4-8.9) L 05/03/18 07:39 Globulin 2.3 g/dL (2.4-3.5) L 05/03/18 07:39 Triglycerides 462 mg/dL (< 150) H 05/05/18 08:50 Cholesterol 275 mg/dL (< 200) H 05/04/18 04:35 HDL Cholesterol 21 mg/dL (40-59) L 05/04/18 04:35 Cholesterol/HDL Ratio 13.1 (0-4.9) H 05/04/18 04:35 Amylase < 10 Units/L (29-103) L 05/04/18 04:35 - Microbiology Findings Microbiology Findings: Microbiology, Last 48 Hours 05/04/18 15:35 Blood Culture - Preliminary Peripheral Venipuncture Culture is incubating and being continuously monitored for growth. Final report to follow. 05/04/18 15:35 Blood Culture - Preliminary Peripheral Venipuncture Culture is incubating and being continuously monitored for growth. Final report to follow. - Clinical Findings Intake & Output: Intake & Output 05/05/18 05/05/18 05/06/18 15:59 23:59 07:59 Intake Total 941.5 / 941.5 535 / 535 Output Total 2100 / 2100 410 / 410 600 / 600 Balance -1158.5 / -1158.5 125 / 125 -600 / -600 Weight 100.9 kg Consult Discharge Plan - Plan Referrals: Alexander Johns DO [Primary Care Provider] - <Gurvinder Shea - Last Filed: 05/06/18 15:28> Date of Encounter: 05/06/18 Objective PUL Vital signs: Last Vital Signs Temp 98.3 F 05/06/18 11:09 Pulse 57 05/06/18 15:04 Resp 22 05/06/18 15:04 BP 108/61 05/06/18 15:04 Pulse Ox 95 05/06/18 15:04 Results - Laboratory Findings CBC and BMP: 05/04/18 15:35 05/06/18 06:07 PT/INR, D-dimer PT 11.5 Seconds (9.4-12.1) 05/04/18 15:35 Abnormal lab findings: Abnormal lab results WBC 11.4 K/mcL (4.3-11.1) H 05/04/18 15:35 RBC 3.39 M/mcL (3.82-4.97) L 05/04/18 15:35 Hgb 10.3 g/dL (11.5-15.4) L D 05/04/18 15:35 Hct 32.3 % (35.3-44.9) L 05/04/18 15:35 VBG pO2 117 mmHg (25-50) H 05/03/18 08:00 Sodium 135 mEq/L (136-145) L 05/06/18 06:07 Chloride 109 mEq/L (98-107) H 05/06/18 06:07 Carbon Dioxide 20 mEq/L (23-29) L 05/06/18 06:07 BUN 4 mg/dL (6-20) L 05/06/18 06:07 BUN/Creatinine Ratio 5 (6-26) L 05/06/18 06:07 Glucose 234 mg/dL (70-105) H 05/06/18 06:07 POC Glucose 142 mg/dL (70-99) H 05/05/18 23:37 Venous Ioniz Calcium 1.54 mmol/L (1.15-1.35) H 05/05/18 05:45 Serum Total Protein 6.0 g/dL (6.4-8.9) L 05/03/18 07:39 Globulin 2.3 g/dL (2.4-3.5) L 05/03/18 07:39 Triglycerides 462 mg/dL (< 150) H 05/05/18 08:50 Cholesterol 275 mg/dL (< 200) H 05/04/18 04:35 HDL Cholesterol 21 mg/dL (40-59) L 05/04/18 04:35 Cholesterol/HDL Ratio 13.1 (0-4.9) H 05/04/18 04:35 Amylase < 10 Units/L (29-103) L 05/04/18 04:35 - Microbiology Findings Microbiology Findings: Microbiology, Last 48 Hours 05/04/18 15:35 Blood Culture - Preliminary Peripheral Venipuncture Culture is incubating and being continuously monitored for growth. Final report to follow. 05/04/18 15:35 Blood Culture - Preliminary Peripheral Venipuncture Culture is incubating and being continuously monitored for growth. Final report to follow. - Clinical Findings Intake & Output: Intake & Output 05/05/18 05/06/18 05/06/18 23:59 07:59 15:59 Intake Total 535 / 535 Output Total 410 / 410 600 / 600 0 / 0 Balance 125 / 125 -600 / -600 0 / 0 Weight 100.9 kg - Attending Attestation - Attending Attestation I saw and evaluated this patient and my medical decision-making was reviewed with the Resident Physician. I agree with the documented findings, disposition and treatment plan as described except to the extent set forth below. We independently had [id number] contact with the patient ELECTION CLERK: Patient is conscious oriented 3 following commands. Pulm: Patient has acceptable oxygenation and ventilation. Cards: Patient has symptomatic bradycardia with hypotension troponins being negative and echo showed normal LV function most likely due to this accidental dose of Cardizem which was given in the floor. Patient was tried on Glucophage and did not respond to start her on high dose insulin drip to help in inotropic action. In case she needs vasopressor norepinephrine will be there vasopressor of choice we can give temperately through the ultrasound-guided peripheral IV which was inserted in the basilic vein. I suspect this vasopressor therapy if at all she needs will be temporary. 05/05 patient is hemodynamically stable responded well to insulin therapy. Will start reducing the dose of insulin as the half life of controlled-release of Cardizem now been well past now. Patient can be transferred to medical telemetry later. 05/06 patient is hemodynamically stable off high-dose insulin therapy she does not need any more high-dose insulin therapy could not be transferred to any telemetry. FEN-GI: To advance diet as tolerated. Patient is recovering from pancreatitis Renal: Labs and output were reviewed to do intake output monitoring ID: No active infectious disease issues blood cultures were sent Heme/Onc: Labs were reviewed Endo: Glucose Monitored , to continue insulin sliding scale reduced dose basal insulin as patient is started at once her diet slowly. Integ/MSK: Skin Care per routine ICU Nursing Protocol to prevent ulcers. Lines: All lines examined without evidence of infection : Dispo: Can be transferred to medical telemetry. CODE: Full Code
[2018-05-06] MEDS: Gabapentin 100 MG CAPSULE PO SCH ×3 (07:33→19:56)
[2018-05-06] MEDS: D10% in Water 500 ML IVC SCH (10:01)
[2018-05-06 10:45] LABS: BUN/Creatinine Ratio 5 (6-26); Blood Urea Nitrogen 4 mg/dL (6-20); Calcium 9.7 mg/dL (8.6-10.3); Carbon Dioxide 20 mEq/L (23-29); Chloride 109 mEq/L (98-107); Glucose 234 mg/dL (70-105); Osmolality,Calculated 284 (280-300); Phosphorous 3.4 mg/dL (2.7-4.5); Potassium 3.9 mEq/L (3.5-5.1); Sodium 135 mEq/L (136-145); eGFR For Non-African Americans > 60 (> 60)
[2018-05-06] MEDS ORDERED: Ondansetron 4 MG/2 ML VIAL IVP PRN (14:47)
[2018-05-06] MEDS ORDERED: Dextrose 4 GM Chewable Tablets PO PRN ×2 (14:47)
[2018-05-06] MEDS ORDERED: *HR* Dextrose 50 % in Water (Syg) 50 ML SYRINGE IVP PRN (14:47)
[2018-05-06] MEDS ORDERED: Dextrose Gel 15 GM/37.5 ML TUBE PO PRN ×2 (14:47)
[2018-05-06] MEDS ORDERED: D5% in Water 1,000 ML IVC PRN (14:47)
[2018-05-06] MEDS ORDERED: Acetaminophen 325 MG TABLET PO PRN (14:47)
[2018-05-06] MEDS ORDERED: Naloxone 0.4 MG/ML INJ IVP PRN (14:47)
[2018-05-06] MEDS ORDERED: Mirtazapine 15 MG TABLET PO SCH (21:00)
[2018-05-06] MEDS ORDERED: Fenofibrate 54 MG TABLET PO SCH (21:00)
[2018-05-07 05:26] LABS: BUN/Creatinine Ratio 6 (6-26); Blood Urea Nitrogen 4 mg/dL (6-20); Calcium 9.7 mg/dL (8.6-10.3); Carbon Dioxide 25 mEq/L (23-29); Chloride 106 mEq/L (98-107); Glucose 213 mg/dL (70-105); Osmolality,Calculated 281 (280-300); Potassium 4.1 mEq/L (3.5-5.1); Sodium 134 mEq/L (136-145); eGFR For Non-African Americans > 60 (> 60)
[2018-05-07] MEDS ORDERED: *HR* Enoxaparin 40 MG/0.4 ML SYRINGE SQ SCH (06:00)
[2018-05-07] MEDS ORDERED: Levothyroxine 25 MCG TABLET PO SCH (06:30)
[2018-05-07] MEDS: Gabapentin 100 MG CAPSULE PO SCH ×2 (08:30→16:27)
[2018-05-07] MEDS: Insulin LISPRO 300 UNITS/3 ML VIAL SQ SCH ×3 (08:31→16:30)
[2018-05-07 14:41] VITALS: BP 119/83
--- NOTE | 2018-05-07 16:11 | Discharge Summary ---
<Josh Choe - Last Filed: 05/07/18 16:07> - NOTES TO OUTPATIENT PROVIDER Notes to Outpatient Provider: Patient was admitted and treated for acute pancreatitis secondary to hypertriglyceridemia. During hospital course she developed calcium channel rocio toxicity and was transferred to the ICU for hypotension and bradycardia. She was managed in the ICU for 2 days and responded well to supportive therapy. After resolution of CCB toxicity she was transferred back to the floor where she was able to tolerate diet and it was determined that her acute pancreatitis had resolved and she was stable for discharge. It will be imperative that she continues to take her statin as well as fenofibrate to prevent further recurrences of acute pancreatitis. Orders not resulted at time of discharge: Pending orders 05/04/18 15:35 Culture,Blood [BC] Stat 05/08/18 04:00 BMP [Basic Metabolic Panel] AM 0400 Date of Encounter: 05/07/18 Time of Encounter: 09:00 - Discharge Diagnosis (1) Acute pancreatitis Priority: Primary Status: Resolved Assessment and Plan: Patient was originally admitted with acute pancreatitis believed to be secondary to hypertriglyceridemia She was started on supportive care including aggressive fluid resuscitation Her acute pancreatitis resolved over several days and patient was able to to lerate diet prior to discharge On day of discharge patient ate 100% of breakfast and lunch It will be imperative that patient continues statin and fenofibrate to prevent recurrences Qualifiers: Pancreatitis type: other Acute pancreatitis complication: no infection or necrosis Qualified Code(s): K85.80 - Other acute pancreatitis without necrosis or infection (2) Chest pain Priority: Secondary Status: Acute Assessment and Plan: Patient has had reproducible chest pain during hospital course with negative troponins and benign echocardiogram and benign EKG Qualifiers: Chest pain type: precordial pain Qualified Code(s): R07.2 - Precordial pain (3) Diabetes Priority: Secondary Status: Chronic Assessment and Plan: During hospital course patient's diabetes was managed with a combination of insulin drip and glucose supplementation secondary to nothing by mouth status She will be discharged on home medications with stable glucose on morning labs Qualifiers: Diabetes mellitus type: type 2 Diabetes mellitus assisted insulin use: with middle or intermediate school principal use Diabetes mellitus complication status: with hyperglycemia Qualified Code(s): E11.65 - Type 2 diabetes mellitus with hyperglycemia; Z79.4 - terminal gauger (current) use of insulin (4) Hypertension Priority: Secondary Status: Chronic Assessment and Plan: Home hypertensive medications were held during hospital course due to hypotension secondary to calcium channel rocio adverse effect On day of discharge patient's blood pressure is stable and we will resume home medications at discharge Qualifiers: Hypertension type: essential hypertension Qualified Code(s): I10 - Essential (primary) hypertension (5) High triglycerides Priority: Secondary Status: Chronic Assessment and Plan: History of chronic elevated triglycerides, on statin at home, fenofibrate started here We will continue statin and fenofibrate at discharge It will be imperative for patient stated on these to prevent further occurrences of pancreatitis (6) Calcium channel rocio adverse reaction Priority: Secondary Status: Resolved Assessment and Plan: Patient developed adverse hypotension and bradycardia secondary to calcium channel rocio toxicity She was transferred to ICU where she was managed with insulin, dextrose, potassium supplementation She recovered well with this treatment regimen and was transferred back to the floor after 2 days Qualifiers: Encounter type: initial encounter Qualified Code(s): T46.1X5A - Adverse effect of calcium-channel blockers, initial encounter Hospital course: Ms. Larkin is a 43 year old female with a past medical history of diabetes, hypertension, hypertriglyceridemia who presented to the hospital with acute abdominal pain radiating into her back. Workup in the ED demonstrated acute pancreatitis, believed to be secondary to hypertriglyceridemia. She was also determined to be in DKA. The patient was admitted and started on aggressive fluid resuscitation which quickly resolved the DKA. She remained on supportive care for pancreatitis. The next day the patient developed hypotension and bradycardia secondary to acute calcium channel rocio toxicity. She was transferred to the ICU for management. She spent 2 days in the ICU and clinically recovered well and was transferred back to the floor in stable condition. Once on the floor the patient was able to tolerate oral intake and a 100% of her breakfast and lunch. She was considered stable for discharge. She was instructed on the importance of continuing her statin and fenofibrate to prevent further occurrences of acute pancreatitis secondary to hypertriglyceridemia. Discharge discussed with: patient, nurse - Time Spent with Patient Total time spent providing and/or coordinating discharge services: - Discharge Medications Prescriptions: New Fenofibrate [Tricor] 162 mg PO HS 30 Days #90 tablet Continue Tizanidine HCl 4 mg PO QID Mirtazapine [Remeron] 45 mg PO HS Metoprolol Succinate 100 mg PO DAILY Levothyroxine Sodium 25 mcg PO DAILY Albuterol Sulfate [Albuterol Inhaler] 2 puff IH Q4-6H PRN PRN Reason: Shortness Of Breath Buspirone HCl [Buspar] 10 mg PO BID Losartan/HCTZ [Hyzaar 50-12.5 Tablet] 1 tab PO DAILY Escitalopram [Lexapro] 10 mg PO DAILY Metoclopramide [Reglan] 10 mg PO TID Insulin LISPRO [Humalog Kwikpen U-100] 20 unit SQ TID Insulin Degludec [Tresiba Flextouch U-100] 55 unit SQ DAILY Insulin LISPRO [HumaLOG] 0 - 18 units SQ TIDWM Atorvastatin [Lipitor] 80 mg PO HS #60 tablet Home Medications: Albuterol Sulfate [Albuterol Inhaler] 2 puff IH Q4-6H PRN 09/04/17 [History] Levothyroxine Sodium 25 mcg PO DAILY 09/04/17 [History] Metoprolol Succinate 100 mg PO DAILY 09/04/17 [History] Mirtazapine [Remeron] 45 mg PO HS 09/04/17 [History] Tizanidine HCl 4 mg PO QID 09/04/17 [History] Buspirone HCl [Buspar] 10 mg PO BID 05/04/18 [History] Escitalopram [Lexapro] 10 mg PO DAILY 05/04/18 [History] Insulin Degludec [Tresiba Flextouch U-100] 55 unit SQ DAILY 05/04/18 [History] Insulin LISPRO [HumaLOG] 0 - 18 units SQ TIDWM 05/04/18 [History] Insulin LISPRO [Humalog Kwikpen U-100] 20 unit SQ TID 05/04/18 [History] Losartan/HCTZ [Hyzaar 50-12.5 Tablet] 1 tab PO DAILY 05/04/18 [History] Metoclopramide [Reglan] 10 mg PO TID 05/04/18 [History] Atorvastatin [Lipitor] 80 mg PO HS #60 tablet 05/07/18 [Rx] Fenofibrate [Tricor] 162 mg PO HS 30 Days #90 tablet 05/07/18 [Rx] Allergies/Adverse Reactions: Allergy/AdvReac Type Severity Reaction Status Date / Time azithromycin Allergy Difficulty Verified 05/04/18 13:18 [From Zithromax Z-Jareth] Breathing NSAIDS (Non-Steroidal Allergy Difficulty Verified 05/04/18 13:18 Anti-Inflamma Breathing Date of admission: 05/03/18 13:04 Primary care physician: Alexander Johns Consults: 05/04/18 14:43 Consult to Cardiology [CONS] Routine Comment: Consulting Provider: Cardiology Stephanie Reason for Consult: Hypotension, bradycardia Call Completed: No Consult to Pulmonology [CONS] Routine Consulting Provider: Pulm [facility] Reason for Consult: severe hypotension Call Completed: Yes 05/04/18 14:56 Consult to Invasive Line Access Team [CONS] Routine Reason for Consult: need good IV access for dopamine infusion and frequent lab draws Line Type: EPIV 05/07/18 12:44 consult to cake knocker [Consult to Nutrition] [CONS] Routine Comment: Portion control Consulting Provider: NUTRITION Reason for Dietary Consult: Diet Education Discharging clinician: Josh Choe Anticipated date of discharge: 05/07/18 - Constitutional Vitals: Temp Pulse Resp BP Pulse Ox 98.5 F 77 16 119/83 95 05/07/18 14:38 05/07/18 14:38 05/07/18 14:38 05/07/18 14:38 05/07/18 14:38 General appearance: Present: cooperative, A&O X 3, morbidly obese, pleasant, answers questions appropriately Exam: Alert and oriented 3, normal affect PERRLA, EOMI, no lymphadenopathy Heart in regular rate and rhythm without murmur or gallop Lungs with diffuse end expiratory wheeze, otherwise clear to auscultation Abdomen mildly diffusely tender, normal bowel sounds present, soft and obese Moves all 4 extremities, no focal deficits noted Skin warm and dry, Bilateral pedal edema - Patient Status Disposition: Home, Self-Care Condition: Good Functional capacity at discharge: independent ambulation Overall status at discharge: patient is progressing back to baseline - Discharge Instructions Instructions: Chest Pain (DC), Diabetes Mellitus Type 2 in Adults (DC) Follow Up With: Alexander Johns DO [Primary Care Provider] - 05/21/18 11:00 am - Diet and Activity Activity: resume usual activities as tolerated Diet: diabetic diet, low fat, low cholesterol <Shelli Keys - Last Filed: 05/07/18 18:04> Orders not resulted at time of discharge: Pending orders 05/04/18 15:35 Culture,Blood [BC] Stat 05/08/18 04:00 BMP [Basic Metabolic Panel] AM 0400 Date of Encounter: 05/07/18 - Discharge Diagnosis (1) Chest pain Status: Acute Qualifiers: Chest pain type: precordial pain Qualified Code(s): R07.2 - Precordial pain (2) Diabetes Status: Chronic Qualifiers: Diabetes mellitus type: type 2 Diabetes mellitus middle or intermediate school principal insulin use: with assisted use Diabetes mellitus complication status: with hyperglycemia Qualified Code(s): E11.65 - Type 2 diabetes mellitus with hyperglycemia; Z79.4 - terminal gauger (current) use of insulin (3) Hypertension Status: Chronic Qualifiers: Hypertension type: essential hypertension Qualified Code(s): I10 - Essential (primary) hypertension (4) High triglycerides Status: Chronic (5) Acute pancreatitis Status: Resolved Qualifiers: Pancreatitis type: other Acute pancreatitis complication: no infection or necrosis Qualified Code(s): K85.80 - Other acute pancreatitis without necrosis or infection (6) Calcium channel rocio adverse reaction Status: Resolved Qualifiers: Encounter type: initial encounter Qualified Code(s): T46.1X5A - Adverse effect of calcium-channel blockers, initial encounter Hospital course: Ms. Larkin is a 43 year old female - Time Spent with Patient Total time spent providing and/or coordinating discharge services: Date of admission: 05/03/18 13:04 Primary care physician: Alexander Johns Consults: 05/04/18 14:43 Consult to Cardiology [CONS] Routine Comment: Consulting Provider: Cardiology Terril Reason for Consult: Hypotension, bradycardia Call Completed: No Consult to Pulmonology [CONS] Routine Consulting Provider: Pulm [facility] Reason for Consult: severe hypotension Call Completed: Yes 05/04/18 14:56 Consult to Invasive Line Access Team [CONS] Routine Reason for Consult: need good IV access for dopamine infusion and frequent lab draws Line Type: EPIV 05/07/18 12:44 consult to cake knocker [Consult to Nutrition] [CONS] Routine Comment: Portion control Consulting Provider: NUTRITION Reason for Dietary Consult: Diet Education - Constitutional Vitals: Temp Pulse Resp BP Pulse Ox 98.5 F 77 16 119/83 95 05/07/18 14:38 05/07/18 14:38 05/07/18 14:38 05/07/18 14:38 05/07/18 14:38 - Attending Attestation I examined this patient and my medical decision-making was reviewed with the Resident Physician. I agree with the documented findings, disposition and treatment plan as described except to the extent set forth below.
[2018-05-07] MEDS: *HR* OxyCODONE Immed Rel 5 MG TABLET PO PRN (16:26)
[2018-05-07] MEDS ORDERED: Insulin LISPRO 300 UNITS/3 ML VIAL SQ SCH (21:00)
== END 2018-05-07 18:04 | disposition home or self-care (01) | DRG 438 ==
LOC: 2NNU → SUATTDRO 13:04 → ICNU 05-04 14:49 → 3ANU 05-06 20:45
PROVIDERS: ADMIT Pediatrics; ATTEND Student in an Organized Health Care Education/Training Program